=== PATIENT | male | born 1970 | race Caucasian/White ===

== ENCOUNTER 2016-05-28 15:18 | Observation (INO) | payer SELFPAY ==
[2016-05-28] MEDS ORDERED: THIAMINE 200 MG/2 ML IV ONE (15:33)
[2016-05-28] MEDS ORDERED: Sodium Chloride 0.9% 1000 ML 1,000 ML IV STA (15:33)
--- NOTE | 2016-05-28 15:41 | ERPHSYRPT ---
- History of Present Illness Time Seen by Provider: 05/28/16 15:35 Source: patient Exam Limitations: no limitations Patient Subjective Stated Complaint: [facility] DEPARTMENT NICK IN PT WHO BLEW A .399. PT AGGRESSIVE AT TIMES WITH NURSING STAFF. Triage Nursing Assessment: PT AGGRESSIVE AT TIMES WITH THE NURSING STAFF. [facility] DEP. PLACED CUFFS BACK ON PT. SPEECH IS RAMBLED. PT ALERT X 2. SKIN PINK WARM AND DRY. RESPIRATIONS EVEN AND UNLABORED. Physician History: This is a 45-year-old white male with history of seizures, heart problems who states he drinks a pint a day daily for about a year brought by the [facility] for medical clearance Patient was apparently found walking had a breath alcohol of 399. Patient initially somewhat agitated and aggressive with the nurses patient currently is allowing me to complete his examination. Patient states she's been having a cough he's had some chest pain with his cough. No vomiting no diarrhea no abdominal pain. Past medical history includes heart problems, seizures . Timing/Duration: other (patient brought by [facility] today states he drinks daily cough unknown period time associated with pain with coughing) Modifying Factors: Improves With: nothing Associated Symptoms: cough, chest pain (chest pain with cough), No nausea, No vomiting, No abdominal pain, No shortness of breath, No heartburn, No diaphoresis, No fever, No headaches, No loss of appetite, No malaise, No rash, No syncope, No seizure, No weakness Allergies/Adverse Reactions: No Known Drug Allergies Allergy (Verified 01/04/16 17:47) Home Medications: Hydrocodone Bit/Acetaminophen [[place] 7.5-325 Tablet] 1 each PO DAILY 05/28/16 [ History] Hx Tetanus, Diphtheria Vaccination/Date Given: No Hx Influenza Vaccination/Date Given: No Hx Pneumococcal Vaccination/Date Given: No Immunizations Up to Date: No - Review of Systems Constitutional: No Fever, No Chills Eyes: No Symptoms Ears, Nose, & Throat: No Symptoms Respiratory: Cough, No Cyanosis, No Dyspnea, No Dyspnea on Exertion (WHITT), No Stridor, No Wheezing Cardiac: Chest Pain (chest chest pain with cough), No Edema, No Palpitations, No Syncope, No Orthopnea Abdominal/Gastrointestinal: No Abdominal Pain, No Nausea, No Vomiting, No Diarrhea Genitourinary Symptoms: No Dysuria Musculoskeletal: No Back Pain, No Neck Pain Skin: No Rash Neurological: No Dizziness, No Focal Weakness, No Gait Changes, No Headache, No Irritability, No Lethargy, No Paralysis, No Parasthesia, No Seizure, No Sensory Changes, No Speech Changes, No Tics, No Tremors, No Vertigo Psychological: Alcohol Abuse (patient drinks a pint of alcohol daily) Endocrine: No Symptoms All Other Systems: Reviewed and Negative - Past Medical History Pertinent Past Medical History: Yes Neurological History: Seizures ENT History: No Pertinent History Cardiac History: Hypertension, Myocardial Infarction ([place]) Respiratory History: No Pertinent History Endocrine Medical History: No Pertinent History Musculoskeletal History: Arthritis GI Medical History: No Pertinent History History: No Pertinent History Psycho-Social History: No Pertinent History Male Reproductive Disorders: No Pertinent History Other Medical History: 2 LOWER DISCS ARE OUT, - Past Surgical History Past Surgical History: Yes Neuro Surgical History: No Pertinent History Cardiac: Cardiac Catheterization Respiratory: No Pertinent History Gastrointestinal: No Pertinent History Genitourinary: No Pertinent History Musculoskeletal: No Pertinent History Male Surgical History: No Pertinent History - Social History Smoking Status: Current every day smoker How long have you smoked: 20 YRS Exposure to second hand smoke: No Drug Use: none Patient Lives Alone: No - Nursing Vital Signs Nursing Vital Signs: Initial Vital Signs Temperature 97.6 F Temperature Source Axillary Pulse Rate 70 Respiratory Rate 16 Blood Pressure [Left Arm] 194/82 Pain Intensity 0 - Physical Exam General Appearance: other (well-developed well-nourished white male , flushed in appearance, agitated at times) Eye Exam: PERRL/EOMI, eyes nml inspection Ears, Nose, Throat Exam: normal ENT inspection, TMs normal, pharynx normal, moist mucous membranes Neck Exam: normal inspection, non-tender, supple, full range of motion Respiratory Exam: rhonchi (bilateral rhonchi), No diminished breath sounds Cardiovascular Exam: regular rate/rhythm, normal heart sounds, normal peripheral pulses Gastrointestinal/Abdomen Exam: soft, normal bowel sounds, No tenderness, No mass Back Exam: normal inspection, normal range of motion, No CVA tenderness, No vertebral tenderness Extremity Exam: normal inspection, normal range of motion, pelvis stable Neurologic Exam: alert, oriented x 3, normal mood/affect, nml cerebellar function, nml station & gait, sensation nml, other (patient agitated at times swearing at staff), No motor deficits Skin Exam: other (flushed in appearance) SpO2 Interpretation: normal - Course Nursing assessment & vital signs reviewed: Yes EKG Interpreted by Me: RATE (93 bpm), Sinus Rhythm, Other (ekg, sinus [id number] bpm, axis SI/QIII pattern, no acute st ot t wave abnormalities noted) Ordered Tests: Active Orders 24 hr Category Date Time Status Bedrest with BRP/BSC ROUTINE Activity 05/28/16 18:48 Active Admission/Status Order ROUTINE Care 05/28/16 18:48 Active Call Admit Doctor for Orders ON ADMISSION Care 05/28/16 18:48 Active Code Status Order ROUTINE Care 05/28/16 18:48 Active EKG-ER Only STAT Care 05/28/16 15:33 Completed IV Care Q6H Care 05/28/16 18:48 Active IV Insertion STAT Care 05/28/16 15:33 Completed Telemetry ROUTINE Care 05/28/16 18:48 Active Clear Liquid Diet 05/28/16 Breakfast Active ACETAMINOPHEN Stat Lab 05/28/16 15:52 Completed ACETAMINOPHEN Urgent Lab 05/28/16 22:30 Ordered AMYLASE Stat Lab 05/28/16 15:52 Completed CBC W DIFF AM.LAB Lab 05/29/16 04:00 Ordered CBC W DIFF Stat Lab 05/28/16 15:52 Completed CMP AM.LAB Lab 05/29/16 04:00 Ordered CMP Stat Lab 05/28/16 15:52 Completed Ethyl Alcohol,Urine Stat Lab 05/28/16 16:15 Completed Ethyl Alcohol,Urine Urgent Lab 05/29/16 08:00 Ordered LIPASE Stat Lab 05/28/16 15:52 Completed SALICYLATE Stat Lab 05/28/16 15:52 Completed TROPONIN Stat Lab 05/28/16 15:52 Completed Urine Triage Profile Stat Lab 05/28/16 16:15 Completed Transfer Order Routine Transfer 05/28/16 18:19 Completed Medication Summary Generic Name Dose Route Start Last Admin Trade Name Freq PRN Reason Stop Dose Admin Sodium Chloride 1,000 mls @ 100 mls/hr 05/28/16 18:48 05/28/16 19:01 Sodium Chloride 0.9% 1000 Ml IV 06/27/16 18:47 100 mls/hr .Q10H DESHAWN Administration Lorazepam 1 mg 05/28/16 18:48 Ativan 2 Mg/1 Ml Vial IV 06/27/16 18:47 PRN PRN CIWA SCORE Nicotine 21 mg 05/28/16 19:15 Nicoderm Cq 21 Mg TOP 06/27/16 19:14 Q24H DESHAWN Discontinued Medications Generic Name Dose Route Start Last Admin Trade Name Freq PRN Reason Stop Dose Admin Sodium Chloride 1,000 mls @ 999 mls/hr 05/28/16 15:33 05/28/16 15:53 Sodium Chloride 0.9% 1000 Ml IV 05/28/16 16:33 999 mls/hr .Q1H1M STA Administration Sodium Chloride Confirm 05/28/16 15:49 Sodium Chloride 0.9% 1000 Ml Administered 05/28/16 15:50 Dose 1,000 mls @ ud .ROUTE .STK-MED ONE Thiamine HCl 100 mg 05/28/16 15:33 05/28/16 15:53 Thiamine 200 Mg/2 Ml IV 05/28/16 15:34 100 mg STAT ONE Administration Thiamine HCl Confirm 05/28/16 15:49 Thiamine 200 Mg/2 Ml Administered 05/28/16 15:50 Dose 200 mg .ROUTE .STK-MED ONE Lab/Rad Data: Laboratory Result Diagrams 05/28/16 15:52 05/28/16 15:52 Laboratory Results 05/28/16 05/28/16 05/28/16 Range/Units 16:15 16:15 15:52 WBC (4.0-10.5) K/mm3 RBC (4.1-5.6) M/mm3 Hgb (12.5-18.0) gm/dl Hct (42-50) % MCV (78-100) fl MCH (26-32) pg MCHC (32-36) g/dl RDW (11.5-14.0) % Plt Count (150-450) K/mm3 MPV (6-9.5) fl Gran % (36.0-66.0) % Lymphocytes % (24.0-44.0) % Monocytes % (0.0-12.0) % Eosinophils % (0.00-5.0) % Basophils % (0.0-0.4) % Basophils # (0-0.4) Sodium 142 (136-145) mEq/L Potassium 3.9 (3.5-5.1) mEq/L Chloride 103 (98-107) mEq/L Carbon Dioxide 24.9 (21-32) mEq/L Anion Gap 10.9 (5-15) MEQ/L BUN 8 L (9-20) mg/dL Creatinine 0.66 (0.55-1.30) mg/dl Estimated GFR > 60 ML/MIN Glucose 100 (70-110) MG/DL Calcium 9.3 (8.5-10.1) mg/dL Total Bilirubin 0.1 L (0.2-1.0) mg/dL AST 94 H (15-37) U/L ALT 89 H (12-78) U/L Alkaline Phosphatase 158 H (46-116) U/L Troponin I < 0.017 (0.000-0.056) ng/ml Serum Total Protein 8.0 (6.4-8.2) gm/dL Albumin 4.0 (3.4-5.0) g/dL Amylase 55 (25-115) U/L Lipase 145 (73-393) U/L Salicylates 5.3 (2.8-20.0) mg/dl Urine Opiates Level NEG. (NEGATIVE) Ur Methadone NEG. (NEGATIVE) Acetaminophen < 2.0 L (10-30) ug/ml Urine Barbiturates NEG. (NEGATIVE) Ur Phencyclidine (PCP) NEG. (NEGATIVE) Urine Amphetamine NEG. (NEGATIVE) U Benzodiazepine Level NEG. (NEGATIVE) Urine Cocaine NEG. (NEGATIVE) Urine Marijuana (THC) NEG. (NEGATIVE) Urine pH 6.5 (3-8.5) Urine Ethyl Alcohol 518 H (0.00-20) mg/dl 05/28/16 Range/Units 15:52 WBC 7.6 (4.0-10.5) K/mm3 RBC 5.19 (4.1-5.6) M/mm3 Hgb 17.4 (12.5-18.0) gm/dl Hct 50.8 H (42-50) % MCV 97.9 (78-100) fl MCH 33.5 H (26-32) pg MCHC 34.3 (32-36) g/dl RDW 14.7 H (11.5-14.0) % Plt Count 137 L (150-450) K/mm3 MPV 9.3 (6-9.5) fl Gran % 48.9 (36.0-66.0) % Lymphocytes % 40.8 (24.0-44.0) % Monocytes % 8.6 (0.0-12.0) % Eosinophils % 1.2 (0.00-5.0) % Basophils % 0.5 (0.0-0.4) % Basophils # 0.04 (0-0.4) Sodium (136-145) mEq/L Potassium (3.5-5.1) mEq/L Chloride (98-107) mEq/L Carbon Dioxide (21-32) mEq/L Anion Gap (5-15) MEQ/L BUN (9-20) mg/dL Creatinine (0.55-1.30) mg/dl Estimated GFR ML/MIN Glucose (70-110) MG/DL Calcium (8.5-10.1) mg/dL Total Bilirubin (0.2-1.0) mg/dL AST (15-37) U/L ALT (12-78) U/L Alkaline Phosphatase (46-116) U/L Troponin I (0.000-0.056) ng/ml Serum Total Protein (6.4-8.2) gm/dL Albumin (3.4-5.0) g/dL Amylase (25-115) U/L Lipase (73-393) U/L Salicylates (2.8-20.0) mg/dl Urine Opiates Level (NEGATIVE) Ur Methadone (NEGATIVE) Acetaminophen (10-30) ug/ml Urine Barbiturates (NEGATIVE) Ur Phencyclidine (PCP) (NEGATIVE) Urine Amphetamine (NEGATIVE) U Benzodiazepine Level (NEGATIVE) Urine Cocaine (NEGATIVE) Urine Marijuana (THC) (NEGATIVE) Urine pH (3-8.5) Urine Ethyl Alcohol (0.00-20) mg/dl - Progress Progress: improved Progress Note: 05/28/16 18:16 Despite patient being alert and oriented 3 patient has a urine alcohol level of greater than 500 case is discussed with Dr. Sarkar Will plan to place patient on ICU telemetry will provide IV saline thiamine Ativan - Departure Time of Disposition: 18:17 Departure Disposition: Observation Clinical Impression: ALCOHOL TOXICITY Alcohol intoxication Qualifiers: Complication of substance-induced condition: with unspecified complication Qualified Code(s): F10.129 - Alcohol abuse with intoxication, unspecified Condition: Fair Critical Care Time: No
[2016-05-28] MEDS ORDERED: THIAMINE 200 MG/2 ML ONE (15:49)
[2016-05-28] MEDS ORDERED: Sodium Chloride 0.9% 1000 ML 1,000 ML ONE (15:49)
[2016-05-28 15:55] LABS: BASOPHIL % 0.5 % (0.0-0.4); Eosinophil % 1.2 % (0.00-5.0); Granulocytes % 48.9 % (36.0-66.0); Lymphocytes % 40.8 % (24.0-44.0); Mean Cell Volume 97.9 fl (78-100); Mean Corpuscular Hemoglobin 33.5 pg (26-32); Mean Platelet Volume 9.3 fl (6-9.5); Monocytes % 8.6 % (0.0-12.0); Platelet Count 137 K/mm3 (150-450); Red Blood Count 5.19 M/mm3 (4.1-5.6); Red Cell Distribution Width 14.7 % (11.5-14.0); White Blood Count 7.6 K/mm3 (4.0-10.5)
[2016-05-28 17:34] LABS: ALKALINE PHOSPHATASE 158 U/L (46-116); ANION GAP 10.9 MEQ/L (5-15); BILIRUBIN,TOTAL 0.1 mg/dL (0.2-1.0); BLOOD UREA NITROGEN 8 mg/dL (9-20); CHLORIDE 103 mEq/L (98-107); Carbon Dioxide 24.9 mEq/L (21-32); Glucose 100 MG/DL (70-110); LIPASE 145 U/L (73-393); Potassium 3.9 mEq/L (3.5-5.1); SGOT/AST 94 U/L (15-37); SGPT/ALT 89 U/L (12-78); TROPONIN < 0.017 ng/ml (0.000-0.056)
[2016-05-28 17:52] LABS: ACETAMINOPHEN < 2.0 ug/ml (10-30)
[2016-05-28] MEDS ORDERED: Ativan 2 MG/1 ML VIAL IV PRN (18:48)
[2016-05-28] MEDS: Sodium Chloride 0.9% 1000 ML 1,000 ML IV SCH (19:01)
[2016-05-28] MEDS ORDERED: Nicoderm CQ 21 MG TOP SCH (19:15)
[2016-05-28 19:52] LABS: SODIUM 142 mEq/L (136-145)
[2016-05-29] MEDS: Sodium Chloride 0.9% 1000 ML 1,000 ML IV SCH (04:32)
[2016-05-29 05:29] LABS: Mean Cell Volume 97.2 fl (78-100); Mean Corpuscular Hemoglobin 34.2 pg (26-32); Mean Platelet Volume 9.6 fl (6-9.5); Platelet Count 93 K/mm3 (150-450); Red Blood Count 4.33 M/mm3 (4.1-5.6); Red Cell Distribution Width 14.5 % (11.5-14.0); White Blood Count 3.7 K/mm3 (4.0-10.5)
[2016-05-29 06:05] LABS: ALBUMIN 3.2 g/dL (3.4-5.0); ALKALINE PHOSPHATASE 129 U/L (46-116); BILIRUBIN,TOTAL 0.2 mg/dL (0.2-1.0); BLOOD UREA NITROGEN 5 mg/dL (9-20); CHLORIDE 106 mEq/L (98-107); Carbon Dioxide 25.2 mEq/L (21-32); Glucose 92 MG/DL (70-110); Potassium 4.1 mEq/L (3.5-5.1); SGOT/AST 64 U/L (15-37); SGPT/ALT 69 U/L (12-78); SODIUM 142 mEq/L (136-145); Total Protein 6.7 gm/dL (6.4-8.2)
[2016-05-29 06:07] LABS: ATYPICAL LYMPHS 4 %; BAND 1 % (0.0-2.0); Basophil 1 % (0.0-1.0); Eosinophil 3 % (0.00-3.0); Platelet Estimate DECREASED (NORMAL); Total Cells Counted 100
[2016-05-29 06:08] LABS: Toxic Granulation 1+
[2016-05-29 07:55] VITALS: BP 172/109; PULSE 90; O2SAT 99
--- NOTE | 2016-05-29 08:17 | PCM.DCORD ---
- Discharge Discharge Date: 05/29/16 Condition: Fair Prescriptions: Continue Hydrocodone Bit/Acetaminophen [[place] 7.5-325 Tablet] 1 each PO DAILY Follow up with: MAGGY RUSSELL [Primary Care Provider] -
--- NOTE | 2016-05-29 10:39 | SSS ---
DISCHARGE DIAGNOSIS: INTOXICATION. HISTORY OF PRESENT ILLNESS: The patient is a 45 year-old white male patient who apparently is an alcoholic. He apparently drinks a pint of hard liquor every day. He was found by the police out wandering around with garbled speech and he was brought to the emergency room after having a 0.399 on the Breathalyzer test. The patient is felt the need to be admitted to the hospital for observation due to high level of intoxication that the patient has for his safety. He was placed in the ICU for monitoring overnight. MEDICATIONS: Essentially remarkable for only taking Thorp on a basis for chronic pain. The patient is on no other medications. ALLERGIES: NKDA. PHYSICAL EXAMINATION: The patient is of small stature but otherwise well nourished and well developed. VITAL SIGNS: In the emergency room showed temperature 97.6F axillary, pulse 85, respiratory rate 18, blood pressure 139/89. O2 saturation reported as normal. HEENT: Normocephalic, atraumatic. Pupils equal round reactive to light. Extraocular movements intact. Oropharynx is pink and moist. NECK: Supple without lymphadenopathy, thyromegaly or JVD. CHEST: Clear to auscultation with good air movement bilaterally. HEART: Regular rate and rhythm without murmurs, rubs or gallops. ABDOMEN: Soft, nontender, nondistended without hepatosplenomegaly or masses. EXTREMITIES: Without clubbing, cyanosis or edema. NEUROLOGIC: The patient is alert and oriented x3 this morning, cooperative and pleasant. LAB DATA AND TESTS: Laboratory studies from the emergency room urine drug screen was negative. Metabolic panel showed glucose 100, BUN 8, creatinine 0.66. Liver enzymes were elevated at 94 SGOT, 89 SGPT 158 alkaline phosphatase. Amylase and lipase were normal. Troponin was less than 0.017. Acetaminophen and salicylates were negative. He had a white blood cell count 11,100, hemoglobin 14.7, PLT count 194,000. He had urine performed for ETOH level was over 500 but I am unsure how this correlates with blood alcohol level. Apparently our machine will not currently do blood alcohol levels. HOSPITAL COURSE: By the next morning the patient's urine ETOH was 204 and was normal being 0 to 20 but again the patient was awake, alert, and back to his usual state of health. We did have a discussion with him about alcoholism and about elevation in his liver enzymes. We suggested that he have a hepatitis panel drawn to rule out hepatitis C but he declined to have this done and reported he will have his primary care physician, Dr. Jhoan Foy, do this for him as an outpatient. The patient was felt to be ready for discharge home at this time. He reports that he will be calling his mother for a ride home.
== END 2016-05-29 09:15 | disposition home or self-care (01) ==
LOC: ED 15:18 → UNDOADMOB 18:46 → ICU 18:46
PROVIDERS: ADMIT Family Medicine; ATTEND Family Medicine
DX: F10.129 Alcohol abuse with intoxication, unspecified (principal); G89.4 Chronic pain syndrome; F45.42 Pain disorder with related psychological factors; Z79.899 Other long term (current) drug therapy
CPT/HCPCS: 36000; 36415; 80053; 80307; 80320; 82150; 83690; 83986; 84484; 85025; 93005; 96360; 96374; 99285; G0378; G0481

== ENCOUNTER 2016-09-10 14:37 | Emergency (ER) | payer SELFPAY ==
[2016-09-10 14:45] VITALS: BP 167/118; PULSE 103; O2SAT 98
--- NOTE | 2016-09-10 14:58 | ERPHSYRPT ---
- History of Present Illness Time Seen by Provider: 09/10/16 14:50 Source: patient Exam Limitations: clinical condition Patient Subjective Stated Complaint: pt here to see if he is diabetic because hes family is and co right rib pain after a fall a week ago, no other injury Triage Nursing Assessment: pt has no bruising to right rib area, no sob, resp easy, skin w/d Physician History: PATIENT WITH HISTORY OF HYERTENSION, SEIZURE DISORDER, CORONARY ARTERY DISEASE, FELL A WEEK AGO SUSTAINED INJURY TO HIS RIGHT SIDE OF HIS CHEST. HAS PAIN UPON INSPIRATION AND MOTION OF RIGHT ARM. DENIES ASSOCIATED HEAD NECK OR BACK INJURY. Occurred: last week Reason for Fall: lost balance (FELL AGAINST CAR DOOR) Injuries/Pain Location: chest Loss of Consciousness: no loss of consciousness Quality: sharpness Severity of Pain-Max: moderate Severity of Pain-Current: moderate Modifying Factors: Improves With: movement, other (TAKES NORCO DAILY) Associated Symptoms (Fall): chest pain (RIGHT SIDED RIB PAIN) Allergies/Adverse Reactions: No Known Drug Allergies Allergy (Verified 09/10/16 14:47) Home Medications: Hydrocodone Bit/Acetaminophen [[place] 7.5-325 Tablet] 1 each PO DAILY 05/28/16 [ History] Hx Tetanus, Diphtheria Vaccination/Date Given: No Hx Influenza Vaccination/Date Given: No Hx Pneumococcal Vaccination/Date Given: No Immunizations Up to Date: Yes - Review of Systems Constitutional: No Symptoms Cardiac: Chest Pain Neurological: No Symptoms Psychological: No Symptoms - Past Medical History Pertinent Past Medical History: Yes Neurological History: Seizures ENT History: No Pertinent History Cardiac History: Hypertension, Myocardial Infarction ([place]) Respiratory History: No Pertinent History Endocrine Medical History: No Pertinent History Musculoskeletal History: Arthritis GI Medical History: No Pertinent History History: No Pertinent History Psycho-Social History: No Pertinent History Male Reproductive Disorders: No Pertinent History Other Medical History: 2 LOWER DISCS ARE OUT, - Past Surgical History Past Surgical History: Yes Neuro Surgical History: No Pertinent History Cardiac: Cardiac Catheterization Respiratory: No Pertinent History Gastrointestinal: No Pertinent History Genitourinary: No Pertinent History Musculoskeletal: No Pertinent History Male Surgical History: No Pertinent History - Social History Smoking Status: Current every day smoker How long have you smoked: 20 YRS Exposure to second hand smoke: Yes Drug Use: none Patient Lives Alone: No - Nursing Vital Signs Nursing Vital Signs: Initial Vital Signs Temperature 97.4 F Temperature Source Oral Pulse Rate 103 Respiratory Rate 16 Blood Pressure [] 167/118 Pain Intensity 7 - [place] Score Best Eye Response ([place]): (4) open spontaneously Best Verbal Response ([place]): (5) oriented Best Motor Response ([place]): (6) obeys commands Kiran Total: 15 - Physical Exam General Appearance: no apparent distress, alert Head Injury: no evidence of injury Eye Exam: PERRL/EOMI ENT Exam: airway nml Neck Exam: normal inspection, No tenderness Respiratory/Chest Exam: chest tenderness (RIGHT LATERAL CHEST WALL TENDERNESS 5TH TO 7TH RIBS, INFERIOR TO AXILLA, NO CREPITUS OR ECCHYMOSIS), normal breath sounds, No respiratory distress Cardiovascular Exam: normal heart sounds, regular rate/rhythm Gastrointestinal Exam: soft, No tenderness, No distention, No guarding, No ecchymosis Back Exam: normal inspection, No vertebral tenderness Extremity Exam: normal inspection, normal range of motion, pelvis stable, No deformities Peripheral Pulses: carotid (R): 2+, carotid (L): 2+, femoral (R): 2+, femoral (L ): 2+, dorsalis-pedis (R): 2+, dorsalis-pedis (L): 2+ Neurologic Exam: alert, oriented x 3, cooperative, sensation nml, No motor deficits Skin Exam: normal color, warm, dry SpO2 Interpretation: normal SpO2: 98 Oxygen Delivery: Room Air - Radiology Exams Chest X-ray Interpretation: Discussed w/ radiologist, Negative Right Ribs X-ray Interpretation: Discussed w/ radiologist (MILD ACROMIOCLAVICLAR DEGNERATIVE ARTHROPATHRY, NO FRACTURE) Ordered Tests: Active Orders 24 hr Category Date Time Status ACCUCHECK [Accucheck] STAT Care 09/10/16 15:47 Active CHEST 2 VIEWS (PA AND LAT) Stat Exams 09/10/16 15:06 Completed RIBS UNILATERAL Stat Exams 09/10/16 15:06 Completed - Progress Progress Note: 09/10/16 15:50 ACCUCHECK 193 Counseled pt/family regarding: diagnosis, need for follow-up, rad results - Departure Time of Disposition: 15:50 Departure Disposition: Home Clinical Impression: RIGHT CHEST WALL CONTUSION Condition: Stable Critical Care Time: No Referrals: MAGGY RUSSELL [Primary Care Provider] - Additional Instructions: CONTINUE ALL CURRENT MEDICATIONS FOR PAIN. FOLLOWUP WITH YOUR FAMILY PHYSICIAN TOMORROW FOR DIABETIC WORKUP.
--- NOTE | 2016-09-10 15:35 | XRAY ---
Indication: Right-sided pain following fall one week ago. Comparison: January 18, 2012. PA/lateral chest again demonstrates normal heart, lungs, and bony thorax.
--- NOTE | 2016-09-10 15:35 | XRAY ---
Indication: Right-sided pain following fall one week ago. Comparison: None. 2 views of the right ribs demonstrates mild acromioclavicular degenerative arthropathy. No other bony, articular, or soft tissue abnormalities.
== END 2016-09-10 16:00 | disposition home or self-care (01) ==
LOC: ED 14:37
DX: S20.211A Contusion of right front wall of thorax, initial encounter (principal); W01.198A Fall on same level from slipping, tripping and stumbling with subsequent striking against other object, initial encounter; I25.2 Old myocardial infarction; I10 Essential (primary) hypertension
CPT/HCPCS: 71020; 71100; 82962; 99282

== ENCOUNTER 2017-01-19 18:13 | Emergency (ER) | payer OTHER ==
[2017-01-19 18:39] VITALS: BP 146/106; PULSE 112
[2017-01-19] MEDS ORDERED: THIAMINE 200 MG/2 ML IM ONE (18:43)
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
[2017-01-19] MEDS ORDERED: Dextrose 5%-Lr IV Solution 1000 ML 1,000 ML IV SCH (19:00)
[2017-01-19] MEDS ORDERED: THIAMINE 200 MG/2 ML ONE (19:11)
[2017-01-19] MEDS ORDERED: Dextrose 5%-Lr IV Solution 1000 ML 1,000 ML IV ONE (19:11)
[2017-01-19 19:24] LABS: Lactic Acid 3.8 (0.4-2.0)
[2017-01-19 19:26] LABS: VBG BASE EXCESS -3.2 (-2.0-2.0); VBG CARBOXYHEMOGLOBIN 6.1 % T HGB (0.0-6.9); VBG HCO3- 21.3 meq/L (22-28); VBG HEMOGLOBIN 15.7; VBG O2 SATURATION 90.4 (95-100); VBG POTASSIUM 3.3 (3.5-5.1); VBG pH 7.38 (7.32-7.42)
[2017-01-19 19:35] LABS: MAGNESIUM 1.8 mg/dL (1.8-2.4)
[2017-01-19 19:38] LABS: ALBUMIN 3.8 g/dL (3.4-5.0); ALKALINE PHOSPHATASE 198 U/L (46-116); ANION GAP 18.5 MEQ/L (5-15); BLOOD UREA NITROGEN 5 mg/dL (9-20); CHLORIDE 100 mEq/L (98-107); Carbon Dioxide 21.8 mEq/L (21-32); Glucose 109 MG/DL (70-110); Potassium 3.1 mEq/L (3.5-5.1); SGOT/AST 267 U/L (15-37); SGPT/ALT 221 U/L (12-78); SODIUM 137 mEq/L (136-145); Total Protein 7.5 gm/dL (6.4-8.2)
[2017-01-19 19:43] LABS: ETHYL ALCOHOL 0.295 % (0.00-0.01)
[2017-01-19 19:44] LABS: BASOPHIL % 0.1 % (0.0-0.4); Eosinophil % 0.3 % (0.00-5.0); Granulocytes % 75.4 % (36.0-66.0); Lymphocytes % 14.5 % (24.0-44.0); Mean Cell Volume 99.8 fl (78-100); Mean Platelet Volume 12.7 fl (6-9.5); Monocytes % 9.7 % (0.0-12.0); Red Blood Count 4.29 M/mm3 (4.1-5.6); Red Cell Distribution Width 15.2 % (11.5-14.0)
[2017-01-19 19:45] VITALS: O2SAT 97
[2017-01-19] MEDS ORDERED: DILANTIN IV 250 MG/5 ML*** 1,000 MG in Sodium Chloride 0.9% 100 ML IVPB 100 ML IV ONE (19:45)
[2017-01-19] MEDS ORDERED: Sodium Chloride 0.9% 1000 ML 1,000 ML IV STA (19:46)
[2017-01-19 19:52] LABS: Platelet Count 17 K/mm3 (150-450)
[2017-01-19] MEDS ORDERED: Klor Con 10 MEQ PO ONE ×2 (19:55→20:06)
[2017-01-19] MEDS ORDERED: Sodium Chloride 0.9% 1000 ML 1,000 ML ONE (20:01)
[2017-01-19 20:14] LABS: Bilirubin NEGATIVE (NEGATIVE); Blood 250 Ery/ul (0-5); COMPLETE URINE MICROSCOPIC? YES; Collection Type VOID; Glucose NEGATIVE (NEGATIVE); Leukocyte Esterase NEGATIVE (NEGATIVE)
[2017-01-19 20:15] LABS: ADD URINE CULTURE? NO (NO); Bacteria RARE /HPF (NEGATIVE); Epithelial Cells FEW /HPF (FEW); WBC 0-2 /HPF (0-5)
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
--- NOTE | 2017-01-20 10:39 | XRAY ---
Exam: Two-view chest from 01/19/2017. Comparison: Two-view chest from 09/10/2016. Indication: Right lower posterior rib pain/bruising. Findings: Upright PA and lateral chest films are submitted for evaluation. The lateral film is slightly rotated. Also, the patient is rotated slightly to the right on the frontal view. The heart size and contour are normal. The mary and mediastinal structures appear unremarkable. Inflation of the lungs is average. No air space infiltrate, vascular congestion, pneumothorax, or pleural effusion is seen. There is slight prominence at the anterior margin of the right seventh rib which could represent minimal callus from a healed fracture at this site. Correlate clinically. The remaining skeletal findings are remarkable only for minimal lower thoracic anterior spurring. Impression: 1. No acute cardiopulmonary disease is seen. No air space infiltrates or pleural fluid is seen. There is no pneumothorax. 2. Questionable callus at anterior margin of right seventh rib which could be due to an old healed fracture deformity. Correlate clinically.
== END 2017-01-19 21:00 | disposition left against medical advice (07) ==
LOC: ED 18:13
DX: F10.920 Alcohol use, unspecified with intoxication, uncomplicated (principal); D69.6 Thrombocytopenia, unspecified; R56.9 Unspecified convulsions; Z91.14 Patient's other noncompliance with medication regimen
CPT/HCPCS: 36000; 36415; 70450; 71020; 80053; 80185; 80307; 81000; 82805; 83605; 83735; 85025; 93005; 93041; 96360; 96372; 99284; G0481; J1165; A9270-GY

== ENCOUNTER 2017-01-20 13:45 | Observation (INO) | payer OTHER ==
[2017-01-20] MEDS ORDERED: Ativan 2 MG/1 ML VIAL IV ONE ×2 (14:10→17:06)
[2017-01-20] MEDS ORDERED: Sodium Chloride 0.9% 1000 ML 1,000 ML IV STA (14:10)
--- NOTE | 2017-01-20 14:19 | ERPHSYRPT ---
- History of Present Illness Time Seen by Provider: 01/20/17 14:10 Source: patient Exam Limitations: no limitations Patient Subjective Stated Complaint: patient states he is here because police raided his house and he took off to a field and was down on his knees in the field for two hours and because "they wanted me to come to the er". Triage Nursing Assessment: arrives per ambulance. patient states there is nothing wrong with him. stating police were trying to raid his house for drugs. is oriented to name and place. now stating that he thinks his mother and daughter are right outside the room and is demanding they come back here. skin w/d, color normal, resp easy. Physician History: This is a 46-year-old white male with history of seizures, myocardial infarction , arthritis, degenerative disc disease. Patient is brought by the medics. Patient apparently had been seen here yesterday with complaints of a thrombocytopenia, seizure, alcohol intoxication, patient had had an extensive workup he was given IV fluids, Dilantin, potassium, thiamine Patient apparently was at home he states that the police came to his house to check for drugs he states he had to kneel out in the field for several hours Patient arrives somewhat tremulous his blood pressure is elevated He states he has not had any alcohol for 2 days He has no nausea no shortness of breath no chest pain Patient is alert and oriented at this time he is answering questions well he is somewhat tremulous he has no motor deficiencies. Past medical history includes seizures, myocardial infarction, arthritis, degenerative disc disease Past surgical history includes cardiac catheter Social history includes tobacco and alcohol patient denies illicit drug use Timing/Duration: today Severity: moderate Modifying Factors: Improves With: nothing Associated Symptoms: seizure (patient apparently had a seizure yesterday), other (patient is tremulous with elevated blood presure), No nausea, No vomiting , No abdominal pain, No shortness of breath, No heartburn, No diaphoresis, No cough, No chills, No chest pain, No fever, No headaches, No loss of appetite, No malaise, No rash, No syncope, No weakness Allergies/Adverse Reactions: No Known Drug Allergies Allergy (Verified 01/19/17 18:39) Home Medications: Phenytoin Sod Extended 100 mg* [Dilantin 100 MG] 300 mg PO DAILY 01/19/17 [ History] Hx Tetanus, Diphtheria Vaccination/Date Given: Yes (unknown) Hx Influenza Vaccination/Date Given: No Hx Pneumococcal Vaccination/Date Given: No - Review of Systems Constitutional: No Fever, No Chills Eyes: No Symptoms Ears, Nose, & Throat: No Symptoms Respiratory: No Cough, No Dyspnea Cardiac: No Chest Pain, No Edema, No Palpitations, No Syncope, No Orthopnea, No PND Genitourinary Symptoms: No Dysuria Musculoskeletal: No Back Pain, No Neck Pain Skin: No Rash Neurological: Tremors Psychological: No Symptoms Endocrine: No Symptoms All Other Systems: Reviewed and Negative - Past Medical History Pertinent Past Medical History: Yes Neurological History: Seizures ENT History: No Pertinent History Cardiac History: Hypertension, Myocardial Infarction ([place]) Respiratory History: No Pertinent History Endocrine Medical History: No Pertinent History Musculoskeletal History: Arthritis GI Medical History: No Pertinent History History: No Pertinent History Psycho-Social History: No Pertinent History Male Reproductive Disorders: No Pertinent History Other Medical History: 2 LOWER DISCS ARE OUT, - Past Surgical History Past Surgical History: Yes Neuro Surgical History: No Pertinent History Cardiac: Cardiac Catheterization Respiratory: No Pertinent History Gastrointestinal: No Pertinent History Genitourinary: No Pertinent History Musculoskeletal: No Pertinent History Male Surgical History: No Pertinent History - Social History Smoking Status: Current every day smoker How long have you smoked: 11 Exposure to second hand smoke: No Drug Use: none Patient Lives Alone: No - Nursing Vital Signs Nursing Vital Signs: Initial Vital Signs Temperature 99.2 F 01/20/17 13:46 Pulse Rate 124 H 01/20/17 13:46 Respiratory Rate 20 01/20/17 13:46 Blood Pressure 159/111 01/20/17 13:46 O2 Sat by Pulse Oximetry 98 01/20/17 13:46 Pain Scale Pain Intensity 0 - Physical Exam General Appearance: other (well-developed well-nourished white male, tremulous, alert oriented 3) Eye Exam: PERRL/EOMI, eyes nml inspection Ears, Nose, Throat Exam: normal ENT inspection, TMs normal, pharynx normal, moist mucous membranes Neck Exam: normal inspection, non-tender, supple, full range of motion Respiratory Exam: normal breath sounds, lungs clear, No respiratory distress Cardiovascular Exam: tachycardia, No murmur Gastrointestinal/Abdomen Exam: soft, normal bowel sounds, No tenderness, No mass Back Exam: normal inspection, normal range of motion, No CVA tenderness, No vertebral tenderness Extremity Exam: normal inspection, normal range of motion, pelvis stable Neurologic Exam: alert, oriented x 3, cooperative, 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, nml cerebellar function, other (patient tremulous) Skin Exam: normal color, warm, dry, No rash Lymphatic Exam: No adenopathy SpO2 Interpretation: normal (98%) SpO2: 98 Oxygen Delivery: Room Air - Course Nursing assessment & vital signs reviewed: Yes EKG Interpreted by Me: RATE (126 bpm), Sinus Tach, Other (EKG: Sinus tachycardia , 126 BPM, axisSI/QIII pattern, no acute ST or T wavechanges noted, compared to January 19, 2017) Ordered Tests: Active Orders 24 hr Category Date Time Status Accucheck STAT Care 01/20/17 14:10 Active EKG-ER Only STAT Care 01/20/17 14:10 Active IV Insertion STAT Care 01/20/17 14:10 Active Regular Diet Diet 01/20/17 Dinner Active ACETAMINOPHEN Stat Lab 01/20/17 14:25 Completed AMYLASE Stat Lab 01/20/17 14:25 Completed CBC W DIFF Stat Lab 01/20/17 14:25 Completed CMP Stat Lab 01/20/17 14:25 Completed CULTURE,URINE Stat Lab 01/20/17 15:00 Received ETHYL ALCOHOL Stat Lab 01/20/17 14:25 Completed LIPASE Stat Lab 01/20/17 14:25 Completed SALICYLATE Stat Lab 01/20/17 14:25 Completed TROPONIN Q3H Lab 01/20/17 14:30 Completed TROPONIN Q3H Lab 01/20/17 17:30 Ordered TROPONIN Q3H Lab 01/20/17 20:30 Ordered TROPONIN Q3H Lab 01/20/17 23:30 Ordered TROPONIN Q3H Lab 01/21/17 02:30 Ordered UA W/RFX UR CULTURE Stat Lab 01/20/17 15:00 Completed Urine Triage Profile Stat Lab 01/20/17 15:00 Completed Transfer Order Routine Transfer 01/20/17 Ordered Medication Summary Discontinued Medications Generic Name Dose Route Start Last Admin Trade Name Freq PRN Reason Stop Dose Admin Sodium Chloride 1,000 mls @ 999 mls/hr 01/20/17 14:10 01/20/17 14:37 Sodium Chloride 0.9% 1000 Ml IV 01/20/17 15:10 999 mls/hr .Q1H1M STA Administration Sodium Chloride Confirm 10/25/17 14:33 Sodium Chloride 0.9% 1000 Ml Administered 01/20/17 14:34 Dose 1,000 mls @ ud .ROUTE .STK-MED ONE Lorazepam 1 mg 01/20/17 14:10 01/20/17 14:38 Ativan 2 Mg/1 Ml Vial IV 01/20/17 14:11 1 mg STAT ONE Administration Lorazepam Confirm 01/20/17 14:33 Ativan 2 Mg/1 Ml Vial Administered 01/20/17 14:34 Dose 2 mg .ROUTE .STK-MED ONE Lab/Rad Data: Laboratory Result Diagrams 01/20/17 14:25 01/20/17 14:25 Laboratory Results 01/20/17 01/20/17 01/20/17 Range/Units 15:00 15:00 14:30 WBC (4.0-10.5) K/mm3 RBC (4.1-5.6) M/mm3 Hgb (12.5-18.0) gm/dl Hct (42-50) % MCV (78-100) fl MCH (26-32) pg MCHC (32-36) g/dl RDW (11.5-14.0) % Plt Count (150-450) K/mm3 MPV (6-9.5) fl Gran % (36.0-66.0) % Lymphocytes % (24.0-44.0) % Monocytes % (0.0-12.0) % Eosinophils % (0.00-5.0) % Basophils % (0.0-0.4) % Basophils # (0-0.4) Sodium (136-145) mEq/L Potassium (3.5-5.1) mEq/L Chloride (98-107) mEq/L Carbon Dioxide (21-32) mEq/L Anion Gap (5-15) MEQ/L BUN (9-20) mg/dL Creatinine (0.55-1.30) mg/dl Estimated GFR ML/MIN Glucose (70-110) MG/DL Calcium (8.5-10.1) mg/dL Total Bilirubin (0.2-1.0) mg/dL AST (15-37) U/L ALT (12-78) U/L Alkaline Phosphatase (46-116) U/L Troponin I < 0.017 (0.000-0.056) ng/ml Serum Total Protein (6.4-8.2) gm/dL Albumin (3.4-5.0) g/dL Amylase (25-115) U/L Lipase (73-393) U/L Ur Collection Type VOID Urine Color YELLOW (YELLOW) Urine Appearance CLEAR (CLEAR) Urine pH 7.0 (5-6) Ur Specific [place] 1.005 (1.005-1.025) Urine Protein TRACE (Negative) Urine Ketones TRACE (NEGATIVE) Urine Blood 5-10 (0-5) Chris/ul Urine Nitrite NEGATIVE (NEGATIVE) Urine Bilirubin NEGATIVE (NEGATIVE) Urine Urobilinogen NORMAL (0-1) mg/dL Ur Leukocyte Esterase TRACE (NEGATIVE) Urine Culture Reflexed YES (NO) Urine Glucose NEGATIVE (NEGATIVE) mg/dL Salicylates (2.8-20.0) mg/dl Urine Opiates Level NEG. (NEGATIVE) Ur Methadone NEG. (NEGATIVE) Acetaminophen (10-30) ug/ml Urine Barbiturates NEG. (NEGATIVE) Ur Phencyclidine (PCP) NEG. (NEGATIVE) Urine Amphetamine NEG. (NEGATIVE) U Benzodiazepine Level NEG. (NEGATIVE) Urine Cocaine NEG. (NEGATIVE) Urine Marijuana (THC) NEG. (NEGATIVE) Ethyl Alcohol (0.00-0.01) % Slides for Path Review Specimen Received 01/20/17 1500 01/20/17 01/20/17 Range/Units 14:25 14:25 WBC 5.9 (4.0-10.5) K/mm3 RBC 3.93 L (4.1-5.6) M/mm3 Hgb 13.6 (12.5-18.0) gm/dl Hct 39.7 L (42-50) % MCV 101.0 H (78-100) fl MCH 34.6 H (26-32) pg MCHC 34.3 (32-36) g/dl RDW 15.1 H (11.5-14.0) % Plt Count 22 L* (150-450) K/mm3 MPV 11.9 H (6-9.5) fl Gran % 73.5 H (36.0-66.0) % Lymphocytes % 13.9 L (24.0-44.0) % Monocytes % 11.9 (0.0-12.0) % Eosinophils % 0.5 (0.00-5.0) % Basophils % 0.2 (0.0-0.4) % Basophils # 0.01 (0-0.4) Sodium 132 L (136-145) mEq/L Potassium 4.0 (3.5-5.1) mEq/L Chloride 96 L (98-107) mEq/L Carbon Dioxide 24.6 (21-32) mEq/L Anion Gap 15.7 H (5-15) MEQ/L BUN 6 L (9-20) mg/dL Creatinine 0.50 L (0.55-1.30) mg/dl Estimated GFR > 60 ML/MIN Glucose 87 (70-110) MG/DL Calcium 9.7 (8.5-10.1) mg/dL Total Bilirubin 1.60 H (0.2-1.0) mg/dL AST 176 H (15-37) U/L ALT 179 H (12-78) U/L Alkaline Phosphatase 172 H (46-116) U/L Troponin I (0.000-0.056) ng/ml Serum Total Protein 7.2 (6.4-8.2) gm/dL Albumin 3.6 (3.4-5.0) g/dL Amylase 51 (25-115) U/L Lipase 91 (73-393) U/L Ur Collection Type Urine Color (YELLOW) Urine Appearance (CLEAR) Urine pH (5-6) Ur Specific [place] (1.005-1.025) Urine Protein (Negative) Urine Ketones (NEGATIVE) Urine Blood (0-5) Chris/ul Urine Nitrite (NEGATIVE) Urine Bilirubin (NEGATIVE) Urine Urobilinogen (0-1) mg/dL Ur Leukocyte Esterase (NEGATIVE) Urine Culture Reflexed (NO) Urine Glucose (NEGATIVE) mg/dL Salicylates < 2.8 L (2.8-20.0) mg/dl Urine Opiates Level (NEGATIVE) Ur Methadone (NEGATIVE) Acetaminophen < 2.0 L (10-30) ug/ml Urine Barbiturates (NEGATIVE) Ur Phencyclidine (PCP) (NEGATIVE) Urine Amphetamine (NEGATIVE) U Benzodiazepine Level (NEGATIVE) Urine Cocaine (NEGATIVE) Urine Marijuana (THC) (NEGATIVE) Ethyl Alcohol < 0.010 (0.00-0.01) % Slides for Path Review YES Specimen Received - Progress Progress: improved Progress Note: 01/20/17 14:17 46-year-old white male seen here yesterday secondary to seizures patient states that he has not drank for 2 days he was a given Dilantin yesterday IV fluids thiamine patient was given a diagnosis of thrombocytopenia noncompliance with medication, seizures. Patient apparently had please come out to his house today who were checking for drugs she was noted to be tremulous and not acting right he was sent into the emergency room for evaluation. On arrival patient is tremulous he is alert oriented 3 he is cooperative at this time. He states he has not had an alcoholic beverage for 2 days. He is tachycardic. Patient did receive thiamine last night. Will give patient IV normal saline, Ativan,. Repeat the CBC CMP EKG blood alcohol level. 01/20/17 15:40 Patient with elevated liver enzymes on chemistry patient EKG sinus tachycardia 1 26 bpm no acute changes are noted troponin within normal limits urine drug screen is negative blood alcohol of less than 0.010 patient's blood alcohol yesterday was 0.270 patient with thrombocytopenia of 22 which is improved from 17 yesterday Patient has received normal saline in the emergency room he received thiamine IV last night. I have given the patient Ativan 1 mg IV. I've discussed the case with Dr. Da Silva who is librarian special collections for medical backup. Will go ahead and place patient on observation diagnosis alcohol withdrawal. Will continue to provide IV fluids, thiamine, Ativan. - Departure Time of Disposition: 16:10 Departure Disposition: Observation Clinical Impression: Thrombocytopenia Alcohol withdrawal Qualifiers: Complication of substance-induced condition: with unspecified complication Qualified Code(s): F10.239 - Alcohol dependence with withdrawal, unspecified Condition: Good Critical Care Time: No Referrals: MAGGY RUSSELL [Primary Care Provider] -
[2017-01-20 14:30] LABS: BASOPHIL % 0.2 % (0.0-0.4); Eosinophil % 0.5 % (0.00-5.0); Granulocytes % 73.5 % (36.0-66.0); Lymphocytes % 13.9 % (24.0-44.0); Mean Corpuscular Hemoglobin 34.6 pg (26-32); Mean Platelet Volume 11.9 fl (6-9.5); Monocytes % 11.9 % (0.0-12.0); Red Blood Count 3.93 M/mm3 (4.1-5.6); Red Cell Distribution Width 15.1 % (11.5-14.0); White Blood Count 5.9 K/mm3 (4.0-10.5)
[2017-01-20] MEDS ORDERED: Sodium Chloride 0.9% 1000 ML 1,000 ML ONE (14:33)
[2017-01-20] MEDS ORDERED: Ativan 2 MG/1 ML VIAL ONE ×2 (14:33→17:07)
[2017-01-20 14:43] LABS: Platelet Count 22 K/mm3 (150-450)
[2017-01-20 14:49] LABS: ALBUMIN 3.6 g/dL (3.4-5.0); ALKALINE PHOSPHATASE 172 U/L (46-116); ANION GAP 15.7 MEQ/L (5-15); BLOOD UREA NITROGEN 6 mg/dL (9-20); CHLORIDE 96 mEq/L (98-107); Carbon Dioxide 24.6 mEq/L (21-32); ETHYL ALCOHOL < 0.010 % (0.00-0.01); Glucose 87 MG/DL (70-110); LIPASE 91 U/L (73-393); SGOT/AST 176 U/L (15-37); SGPT/ALT 179 U/L (12-78); SODIUM 132 mEq/L (136-145); Total Protein 7.2 gm/dL (6.4-8.2)
[2017-01-20 14:51] LABS: ACETAMINOPHEN < 2.0 ug/ml (10-30)
[2017-01-20 15:14] LABS: Bilirubin NEGATIVE (NEGATIVE); Collection Type VOID; Glucose NEGATIVE (NEGATIVE); Leukocyte Esterase TRACE (NEGATIVE)
[2017-01-20 15:15] LABS: ADD URINE CULTURE? YES (NO)
[2017-01-20 15:23] LABS: COMPLETE URINE MICROSCOPIC? YES
[2017-01-20] MEDS ORDERED: Sodium Chloride 0.9% 1000 ML 1,000 ML IV SCH (18:34)
[2017-01-20] MEDS: Ativan 2 MG/1 ML VIAL IV PRN ×2 (19:17→21:50)
[2017-01-20] MEDS ORDERED: Nicoderm CQ 21 MG TOP SCH (22:00)
[2017-01-20] MEDS ORDERED: Haldol 5 MG IM ONE (23:04)
[2017-01-21 03:32] LABS: BASOPHIL % 0.3 % (0.0-0.4); Eosinophil % 1.5 % (0.00-5.0); Granulocytes % 50.5 % (36.0-66.0); Lymphocytes % 31.8 % (24.0-44.0); Mean Cell Volume 101.4 fl (78-100); Mean Platelet Volume 11.6 fl (6-9.5); Monocytes % 15.9 % (0.0-12.0); Red Blood Count 3.57 M/mm3 (4.1-5.6); Red Cell Distribution Width 15.1 % (11.5-14.0); White Blood Count 3.9 K/mm3 (4.0-10.5)
[2017-01-21 03:48] LABS: Mean Corpuscular Hemoglobin 34.1 pg (26-32)
[2017-01-21 03:49] LABS: Platelet Count 22 K/mm3 (150-450)
[2017-01-21 04:14] LABS: ALBUMIN 3.1 g/dL (3.4-5.0); ALKALINE PHOSPHATASE 158 U/L (46-116); ANION GAP 13.3 MEQ/L (5-15); BLOOD UREA NITROGEN 5 mg/dL (9-20); CHLORIDE 100 mEq/L (98-107); Carbon Dioxide 25.6 mEq/L (21-32); Glucose 96 MG/DL (70-110); Potassium 3.6 mEq/L (3.5-5.1); SGOT/AST 128 U/L (15-37); SGPT/ALT 135 U/L (12-78); SODIUM 135 mEq/L (136-145); Total Protein 5.8 gm/dL (6.4-8.2)
[2017-01-21 05:32] VITALS: BP 117/67; PULSE 89; O2SAT 96
--- NOTE | 2017-01-21 08:24 | PCM.SSS ---
History of Present Illness - Chief Complaint Chief Complaint: etoh withdrawl thombocytopenia History of Present Illness: is a 46 year old male with no local physician, he normally sees Dr Foy. He has a history of seizures, was in the ER for a seizure. He was acutely intoxicated 2 days ago, returned yesterday and alcohol level was 0 and he exhibited signs and symptoms of withdrawal. - Review of Systems Constitutional: No Fever, No Chills Respiratory: No Cough, No Short Of Breath Cardiac: No Chest Pain, No Edema, No Syncope Skin: No Rash Neurological: Seizure All Other Systems: Reviewed and Negative Medications & Allergies Home Medications: Home Medication List Phenytoin Sod Extended 100 mg* [Dilantin 100 MG] 300 mg PO DAILY 01/19/17 [ History Confirmed 01/20/17] Allergies/Adverse Reactions: Allergies Allergy/AdvReac Type Severity Reaction Status Date / Time No Known Drug Allergies Allergy Verified 01/19/17 18:39 - Past Medical History Past Medical History: Yes Neurological History: Seizures ENT History: No Pertinent History Cardiac History: Hypertension, Myocardial Infarction ([place]) Respiratory History: No Pertinent History Endocrine Medical History: No Pertinent History Musculoskelatal History: Arthritis GI Medical History: No Pertinent History History: No Pertinent History Pyscho-Social History: No Pertinent History Male Reproductive Disorders: No Pertinent History Comment: 2 LOWER DISCS ARE OUT, - Past Surgical History Past Surgical History: Yes Neuro Surgical History: No Pertinent History Cardiac History: Cardiac Catheterization Respiratory Surgery: No Pertinent History GI Surgical History: No Pertinent History Genitourinary Surgical Hx: No Pertinent History Musculskeletal Surgical Hx: No Pertinent History Male Surgical History: No Pertinent History - Social History Smoking Status: Heavy tobacco smoker How long have you smoked: 10years Exposure to second hand smoke: No Alcohol: Daily Drug Use: none - Physical Exam Vital Signs: Vital Signs - 24 hr Temp Pulse Resp BP Pulse Ox 01/21/17 04:00 89 16 117/67 96 01/21/17 00:00 97.9 F 102 H 20 156/91 97 01/20/17 20:14 98.6 F 111 H 19 136/90 95 01/20/17 20:00 102 H 25 H 01/20/17 18:32 99.2 F 120 H 16 143/116 01/20/17 17:03 120 H 16 143/116 01/20/17 16:12 98 01/20/17 15:40 116 H 16 132/79 01/20/17 14:50 117 H 24 133/88 98 01/20/17 14:36 112 H 20 150/75 98 01/20/17 13:46 99.2 F 124 H 20 159/111 98 General Appearance: no apparent distress, alert Neurologic Exam: alert, oriented x 3, cooperative, normal mood/affect, nml cerebellar function, nml station & gait, sensation nml, No motor deficits Eye Exam: PERRL/EOMI, eyes nml inspection Respiratory Exam: normal breath sounds, lungs clear, No respiratory distress Cardiovascular Exam: regular rate/rhythm, normal heart sounds, normal peripheral pulses Gastrointestinal/Abdomen Exam: soft, normal bowel sounds, No tenderness, No mass Extremity Exam: normal inspection, normal range of motion, pelvis stable Results - Labs Lab/Micro Results: Lab Results-Last 24 Hours 01/20/17 01/21/17 01/21/17 Range/Units 20:45 03:22 03:22 WBC 3.9 L (4.0-10.5) K/mm3 RBC 3.57 L (4.1-5.6) M/mm3 Hgb 12.2 L (12.5-18.0) gm/dl Hct 36.2 L (42-50) % MCV 101.4 H (78-100) fl MCH 34.1 H (26-32) pg MCHC 33.7 (32-36) g/dl RDW 15.1 H (11.5-14.0) % Plt Count 22 L* (150-450) K/mm3 MPV 11.6 H (6-9.5) fl Gran % 50.5 (36.0-66.0) % Lymphocytes % 31.8 (24.0-44.0) % Monocytes % 15.9 H (0.0-12.0) % Eosinophils % 1.5 (0.00-5.0) % Basophils % 0.3 (0.0-0.4) % Basophils # 0.01 (0-0.4) Sodium (136-145) mEq/L Potassium (3.5-5.1) mEq/L Chloride (98-107) mEq/L Carbon Dioxide (21-32) mEq/L Anion Gap (5-15) MEQ/L BUN (9-20) mg/dL Creatinine (0.55-1.30) mg/dl Estimated GFR ML/MIN Glucose (70-110) MG/DL Calcium (8.5-10.1) mg/dL Total Bilirubin (0.2-1.0) mg/dL AST (15-37) U/L ALT (12-78) U/L Alkaline Phosphatase (46-116) U/L Troponin I < 0.017 < 0.017 (0.000-0.056) ng/ml Serum Total Protein (6.4-8.2) gm/dL Albumin (3.4-5.0) g/dL 01/21/17 Range/Units 03:22 WBC (4.0-10.5) K/mm3 RBC (4.1-5.6) M/mm3 Hgb (12.5-18.0) gm/dl Hct (42-50) % MCV (78-100) fl MCH (26-32) pg MCHC (32-36) g/dl RDW (11.5-14.0) % Plt Count (150-450) K/mm3 MPV (6-9.5) fl Gran % (36.0-66.0) % Lymphocytes % (24.0-44.0) % Monocytes % (0.0-12.0) % Eosinophils % (0.00-5.0) % Basophils % (0.0-0.4) % Basophils # (0-0.4) Sodium 135 L (136-145) mEq/L Potassium 3.6 (3.5-5.1) mEq/L Chloride 100 (98-107) mEq/L Carbon Dioxide 25.6 (21-32) mEq/L Anion Gap 13.3 (5-15) MEQ/L BUN 5 L (9-20) mg/dL Creatinine 0.52 L (0.55-1.30) mg/dl Estimated GFR > 60 ML/MIN Glucose 96 (70-110) MG/DL Calcium 9.1 (8.5-10.1) mg/dL Total Bilirubin 1.20 H (0.2-1.0) mg/dL AST 128 H (15-37) U/L ALT 135 H (12-78) U/L Alkaline Phosphatase 158 H (46-116) U/L Troponin I (0.000-0.056) ng/ml Serum Total Protein 5.8 L (6.4-8.2) gm/dL Albumin 3.1 L (3.4-5.0) g/dL - Other Procedures and Tests Respiratory Therapy 01/20/17 20:00 Smoking Cessation Education ONCE Assessment/Plan (1) Alcohol withdrawal Current Visit: Yes Status: Acute Qualifiers: Complication of substance-induced condition: with unspecified complication Qualified Code(s): F10.239 - Alcohol dependence with withdrawal, unspecified Assessment & Plan: discussed help with alcohol detox and offered services, patient is not interested. insists he must go home today. he is alert, oriented and understands risks of withdrawal. I expect he will return home and start drinking again. Code(s): F10.239 - ALCOHOL DEPENDENCE WITH WITHDRAWAL, UNSPECIFIED (2) Thrombocytopenia Current Visit: Yes Status: Acute (3) Alcoholic hepatitis Current Visit: No Status: Acute Qualifiers: Ascites presence: without ascites Qualified Code(s): K70.10 - Alcoholic hepatitis without ascites Code(s): K70.10 - ALCOHOLIC HEPATITIS WITHOUT ASCITES (4) Seizure Current Visit: No Status: Acute Assessment & Plan: continue dilantin, discussed adding keppra but patient has no insurance and states he can't afford any other medication. states he will f/u with Dr Foy and again insists he has to go home today. Hospital Summary - Vitals & Intake/Output Vital Signs: Vital Signs Temperature 97.9 F 01/21/17 00:00 Pulse Rate 89 01/21/17 04:00 Respiratory Rate 16 01/21/17 04:00 Blood Pressure 117/67 01/21/17 04:00 O2 Sat by Pulse Oximetry 96 01/21/17 04:00 Intake & Output: Intake & Output 01/18/17 01/19/17 01/20/17 01/21/17 11:59 11:59 11:59 11:59 Intake Total 1080 Output Total 550 Balance 530 Weight 75.523 kg - Lab Result Diagrams: 01/21/17 03:22 01/21/17 03:22 Lab Results-Last 24 Hrs: Lab Results-Last 24 Hours 01/20/17 01/21/17 01/21/17 Range/Units 20:45 03:22 03:22 WBC 3.9 L (4.0-10.5) K/mm3 RBC 3.57 L (4.1-5.6) M/mm3 Hgb 12.2 L (12.5-18.0) gm/dl Hct 36.2 L (42-50) % MCV 101.4 H (78-100) fl MCH 34.1 H (26-32) pg MCHC 33.7 (32-36) g/dl RDW 15.1 H (11.5-14.0) % Plt Count 22 L* (150-450) K/mm3 MPV 11.6 H (6-9.5) fl Gran % 50.5 (36.0-66.0) % Lymphocytes % 31.8 (24.0-44.0) % Monocytes % 15.9 H (0.0-12.0) % Eosinophils % 1.5 (0.00-5.0) % Basophils % 0.3 (0.0-0.4) % Basophils # 0.01 (0-0.4) Sodium (136-145) mEq/L Potassium (3.5-5.1) mEq/L Chloride (98-107) mEq/L Carbon Dioxide (21-32) mEq/L Anion Gap (5-15) MEQ/L BUN (9-20) mg/dL Creatinine (0.55-1.30) mg/dl Estimated GFR ML/MIN Glucose (70-110) MG/DL Calcium (8.5-10.1) mg/dL Total Bilirubin (0.2-1.0) mg/dL AST (15-37) U/L ALT (12-78) U/L Alkaline Phosphatase (46-116) U/L Troponin I < 0.017 < 0.017 (0.000-0.056) ng/ml Serum Total Protein (6.4-8.2) gm/dL Albumin (3.4-5.0) g/dL 01/21/17 Range/Units 03:22 WBC (4.0-10.5) K/mm3 RBC (4.1-5.6) M/mm3 Hgb (12.5-18.0) gm/dl Hct (42-50) % MCV (78-100) fl MCH (26-32) pg MCHC (32-36) g/dl RDW (11.5-14.0) % Plt Count (150-450) K/mm3 MPV (6-9.5) fl Gran % (36.0-66.0) % Lymphocytes % (24.0-44.0) % Monocytes % (0.0-12.0) % Eosinophils % (0.00-5.0) % Basophils % (0.0-0.4) % Basophils # (0-0.4) Sodium 135 L (136-145) mEq/L Potassium 3.6 (3.5-5.1) mEq/L Chloride 100 (98-107) mEq/L Carbon Dioxide 25.6 (21-32) mEq/L Anion Gap 13.3 (5-15) MEQ/L BUN 5 L (9-20) mg/dL Creatinine 0.52 L (0.55-1.30) mg/dl Estimated GFR > 60 ML/MIN Glucose 96 (70-110) MG/DL Calcium 9.1 (8.5-10.1) mg/dL Total Bilirubin 1.20 H (0.2-1.0) mg/dL AST 128 H (15-37) U/L ALT 135 H (12-78) U/L Alkaline Phosphatase 158 H (46-116) U/L Troponin I (0.000-0.056) ng/ml Serum Total Protein 5.8 L (6.4-8.2) gm/dL Albumin 3.1 L (3.4-5.0) g/dL - Procedures and Test Procedures and Tests throughout Hospitalization: Therapy Orders & Screens 01/20/17 20:00 Smoking Cessation Education ONCE Comment: Diagnosis: etoh withdrawl thombocytopenia Smoking Status: Heavy tobacco smoker How long have you smoked: 10years Have you smoked in the past 12 months: Yes Approximately how many cigarettes per day: pack Do you dip or chew tobacco: No - Discharge Disposition: Home, Self-Care Condition: Stable Prescriptions: Continue Phenytoin Sod Extended 100 mg* [Dilantin 100 MG] 300 mg PO DAILY Follow up with: MAGGY FOY [Primary Care Provider] -
[2017-01-21] MEDS ORDERED: VITAMIN B-1 100 MG PO SCH (10:00)
[2017-01-21] MEDS ORDERED: Dilantin 100 MG PO SCH (10:00)
== END 2017-01-21 10:10 | disposition home or self-care (01) ==
LOC: ED 13:45 → MED SURG 18:25
PROVIDERS: ADMIT Family Medicine; ATTEND Family Medicine
DX: F10.239 Alcohol dependence with withdrawal, unspecified (principal); D69.6 Thrombocytopenia, unspecified; K70.10 Alcoholic hepatitis without ascites; G40.909 Epilepsy, unspecified, not intractable, without status epilepticus; M19.90 Unspecified osteoarthritis, unspecified site; I25.2 Old myocardial infarction; I10 Essential (primary) hypertension
CPT/HCPCS: 36415; 80053; 80307; 81002; 82150; 82962; 83690; 84484; 85025; 87086; 93005; 93041; 96360; 96374; 96376; 99285; G0378; G0481; J1630; J2060; A9270-GY

== ENCOUNTER 2017-06-13 18:12 | Emergency (ER) | payer BC, OTHER ==
[2017-06-13] MEDS ORDERED: THIAMINE 200 MG/2 ML IM ONE (18:32)
[2017-06-13] MEDS ORDERED: Sodium Chloride 0.9% 1000 ML 1,000 ML IV STA (18:40)
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
[2017-06-13] MEDS ORDERED: Dextrose 5%-Lr IV Solution 1000 ML 1,000 ML IV SCH (19:00)
[2017-06-13] MEDS ORDERED: Ativan 1 MG PO ONE (19:19)
[2017-06-13 19:26] VITALS: BP 158/101; PULSE 101; O2SAT 97
[2017-06-13 20:16] LABS: BASOPHIL % 0.3 % (0.0-0.4); Basophil (Absolute #) 0.02 (0-0.4); Eosinophil % 1.4 % (0.00-5.0); Granulocyte Absolute (ANC) 4.02 (1.4-6.9); Granulocytes % 57.3 % (36.0-66.0); Hemoglobin 15.2 gm/dl (12.5-18.0); Lymphocyte (Absolute #) 2.31 (1.0-4.6); Mean Cell Volume 95.7 fl (78-100); Mean Corpuscular Hgb Concent. 34.5 g/dl (32-36); Mean Platelet Volume 9.7 fl (6-9.5); Monocyte (Absolute #) 0.56 (0.0-1.3); Platelet Count 78 K/mm3 (150-450); Red Cell Distribution Width 14.7 % (11.5-14.0)
[2017-06-13 20:33] LABS: INR 1.02 (0.8-3.0)
[2017-06-13 20:44] LABS: ALBUMIN 4.6 g/dL (3.5-5.0); ALKALINE PHOSPHATASE 119 U/L (38-126); ANION GAP 20.6 MEQ/L (5-15); BLOOD UREA NITROGEN 10 mg/dL (9-20); CHLORIDE 105 mmol/L (98-107); Calcium 9.8 mg/dL (8.4-10.2); Carbon Dioxide 26 mmol/L (22-30); Creatinine 1 0.52 mg/dL (0.66-1.25); Glucose 106 mg/dL (74-106); Potassium 4.1 mmol/L (3.5-5.1); SGOT/AST 59 U/L (17-59); SGPT/ALT 33 U/L (0-50); SODIUM 147 mmol/L (137-145); Total Protein 7.9 g/dL (6.3-8.2)
[2017-06-13 20:53] LABS: Amphetamine,Urine NEGATIVE (NEGATIVE); Barbiturate,Urine NEGATIVE (NEGATIVE); Benzodiazepine,Urine NEGATIVE (NEGATIVE); Cocaine,Urine NEGATIVE (NEGATIVE); Methadone,Urine NEGATIVE (NEGATIVE); Opiate,Urine NEGATIVE (NEGATIVE); PCP,Urine NEGATIVE (NEGATIVE); THC,Urine NEGATIVE (NEGATIVE)
[2017-06-13 21:00] LABS: ETHYL ALCOHOL 477 mg/dL (0-9)
[2017-06-13 23:32] LABS: Appearance CLEAR (CLEAR); Bilirubin NEGATIVE (NEGATIVE); Blood NEGATIVE Ery/ul (0-5); Glucose NEGATIVE (NEGATIVE); Ketones NEGATIVE (NEGATIVE); Leukocyte Esterase NEGATIVE (NEGATIVE); Nitrite NEGATIVE (NEGATIVE); Protein,Urine Dip NEGATIVE (Negative); Specific Gravity 1.005 (1.005-1.025); Urobilinogen NORMAL mg/dL (0-1)
[2017-06-14 02:07] LABS: Slide Review 1 YES
--- NOTE | 2017-06-14 09:05 | XRAY ---
Indication: Left-sided injury following fall. Multiple contiguous axial images obtained through the facial bones. Sagittal and coronal reformatted images obtained. Comparison: July 18, 2014. Images through the mandible slightly degraded by motion artifact and beam artifact from dental amalgams. Minimal left supraorbital soft tissue swelling. No acute fracture, suspicious bony lesions, or radiopaque foreign body. Orbits including roof, ann, and floors intact. Paranasal sinuses are clear. Mild nasal septal deviation to the right. Remaining visualized noncontrasted soft tissues unremarkable. CT cervical spine and head reported separately. Impression: Motion and beam artifact. Left superolateral soft tissue swelling. Negative acute fracture. Comment: Preliminary interpretation was made by [facility]. No discrepancy. CT DI 59.47
--- NOTE | 2017-06-14 09:09 | XRAY ---
Indication: Left-sided injury following fall. Multiple contiguous axial images obtained through the cervical spine. Sagittal and coronal reformatted images obtained. Comparison: July 18, 2014. Patient is mildly rotated and side bent to the right. Several images slightly degraded by motion artifact. No acute fracture, suspicious bony lesions, or spinal canal stenosis. Minimal multilevel bilateral degenerative facet arthropathy. Sagittal and coronal reformatted images demonstrates vertebral body heights and disc spaces maintained. No acute compression fracture, subluxation, or jumped facet. Normal-appearing craniocervical junction. Visualized noncontrasted soft tissues including lung apices unremarkable. CT head and facial bones reported separately. Impression: Motion artifact. Minimal multilevel degenerative facet arthropathy. Negative for acute fracture/subluxation. Comment: Preliminary interpretation was made by [facility]. No discrepancy. CT DI 103.80
== END 2017-06-13 21:00 | disposition left against medical advice (07) ==
LOC: ED 18:12
DX: S09.90XA Unspecified injury of head, initial encounter (principal); R68.84 Jaw pain; M54.2 Cervicalgia; R51 Headache
CPT/HCPCS: 36415; 70450; 70486; 72125; 80053; 80307; 81002; 83735; 85025; 85610; 93041; 99282; 99284; G0480

== ENCOUNTER 2018-04-06 09:30 | Emergency (ER) | payer BC ==
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
[2018-04-06] MEDS ORDERED: Sodium Chloride 0.9% 1000 ML 1,000 ML IV STA ×2 (10:15→11:38)
[2018-04-06] MEDS ORDERED: Sodium Chloride 0.9% 1000 ML 1,000 ML ONE ×2 (10:32→11:40)
[2018-04-06 10:38] LABS: BASOPHIL % 0.1 % (0.0-0.4); Basophil (Absolute #) 0.01 (0-0.4); Eosinophil (Absolute #) 0 (0-0.5); Granulocytes % 86.5 % (36.0-66.0); Hematocrit 35.4 % (42-50); Hemoglobin 12.7 gm/dl (12.5-18.0); Lymphocyte (Absolute #) 0.73 (1.0-4.6); Lymphocytes % 6.7 % (24.0-44.0); Mean Cell Volume 101.4 fl (78-100); Mean Corpuscular Hgb Concent. 35.9 g/dl (32-36); Mean Platelet Volume 11.2 fl (6-9.5); Monocyte (Absolute #) 0.73 (0.0-1.3); Monocytes % 6.7 % (0.0-12.0); Platelet Count 47 K/mm3 (150-450); Red Blood Count 3.49 M/mm3 (4.1-5.6); Red Cell Distribution Width 14.9 % (11.5-14.0); White Blood Count 10.9 K/mm3 (4.0-10.5)
[2018-04-06 10:39] LABS: Mean Corpuscular Hemoglobin 36.3 pg (26-32)
[2018-04-06 10:46] LABS: Lactic Acid 4.7 (0.4-2.0)
[2018-04-06 10:50] LABS: ACETAMINOPHEN < 10 ug/ml (10-30); ALBUMIN 4.4 g/dL (3.5-5.0); ALKALINE PHOSPHATASE 227 U/L (38-126); ANION GAP 17.6 MEQ/L (5-15); BLOOD UREA NITROGEN 10 mg/dL (9-20); CHLORIDE 88 mmol/L (98-107); Calcium 10.9 mg/dL (8.4-10.2); Carbon Dioxide 31 mmol/L (22-30); Creatinine 1 1.77 mg/dL (0.66-1.25); ETHYL ALCOHOL < 10 mg/dL (0-10); Glucose 104 mg/dL (74-106); Potassium 3.3 mmol/L (3.5-5.1); SALICYLATE < 1.0 mg/dL (2-20); SGOT/AST 221 U/L (17-59); SGPT/ALT 84 U/L (0-50); SODIUM 134 mmol/L (137-145); Total Protein 7.4 g/dL (6.3-8.2)
[2018-04-06 10:57] LABS: Slide Review 1 YES
[2018-04-06] MEDS ORDERED: Klor Con 10 MEQ PO ONE ×2 (10:58→11:05)
[2018-04-06 12:03] LABS: Amphetamine,Urine NEGATIVE (NEGATIVE); Barbiturate,Urine NEGATIVE (NEGATIVE); Benzodiazepine,Urine NEGATIVE (NEGATIVE); Cocaine,Urine NEGATIVE (NEGATIVE); Methadone,Urine NEGATIVE (NEGATIVE); Opiate,Urine NEGATIVE (NEGATIVE); PCP,Urine NEGATIVE (NEGATIVE); THC,Urine NEGATIVE (NEGATIVE)
--- NOTE | 2018-04-06 12:08 | XRAY ---
Indication: Elevated liver function testing, bilirubin, and WBC. Multiple contiguous axial images obtained through the abdomen and pelvis without contrast as ordered. Comparison: August 30, 2008. Lung bases essentially clear. Heart is not enlarged. Distal esophagus now demonstrates circumferential wall thickening, possible esophagitis. Stomach is distended with food/fluid. Noncontrasted stomach and bowel loops appear nonobstructed. Normal appendix. No free fluid/air. Mild diffuse scattered colonic fecal debris throughout. Minimal descending and proximal sigmoid colon diverticulosis without diverticulitis. Liver now demonstrates diffuse fatty attenuation. New 8-9 mm round left mid renal cortical hyperdensity. Remaining liver, gallbladder, pancreas, spleen, adrenal glands, kidneys, ureters, bladder, and aorta appear unremarkable for noncontrast exam. Osseous structures intact with mild degenerative changes throughout the spine. No ventral or inguinal hernias. Impression: 1. Mild fecal stasis without obstruction. Minimal colonic diverticulosis without diverticulitis. 2. New indeterminate 8-9 mm round left mid renal cortical hyperdensity. Ultrasound may yield further information and differentiate solid versus cystic mass. 3. New fatty liver. 4. New distal esophageal wall thickening. Rule out esophagitis. CT DI 16.36
[2018-04-06 12:24] LABS: Appearance SLIGHTLY CLOUDY (CLEAR); Bacteria RARE /HPF (NEGATIVE); Bilirubin NEGATIVE (NEGATIVE); Blood NEGATIVE Ery/ul (0-5); Glucose NEGATIVE (NEGATIVE); Ketones NEGATIVE (NEGATIVE); Leukocyte Esterase NEGATIVE (NEGATIVE); Mucus SLIGHT /HPF (NEGATIVE); Nitrite NEGATIVE (NEGATIVE); Protein,Urine Dip NEGATIVE (Negative); Specific Gravity 1.004 (1.005-1.025); Urobilinogen NEGATIVE mg/dL (0-1)
[2018-04-06 12:29] VITALS: O2SAT 98
[2018-04-06 13:02] VITALS: BP 141/83; PULSE 100
== END 2018-04-06 13:25 | disposition home or self-care (01) ==
LOC: ED 09:30
DX: F10.951 Alcohol use, unspecified with alcohol-induced psychotic disorder with hallucinations (principal); D69.6 Thrombocytopenia, unspecified; N39.0 Urinary tract infection, site not specified; R74.8 Abnormal levels of other serum enzymes; E87.6 Hypokalemia; Z79.899 Other long term (current) drug therapy
CPT/HCPCS: 36000; 36415; 74176; 80053; 80185; 80307; 81001; 82140; 83605; 83690; 85025; 93005; 93041; 96360; 99284; G0481; A9270-GY; G0480

== ENCOUNTER 2018-04-07 07:41 | Inpatient (IN) | payer BC ==
[2018-04-07] MEDS ORDERED: Sodium Chloride 0.9% 1000 ML 1,000 ML IV STA (08:07)
[2018-04-07] MEDS ORDERED: Pepcid 20 MG VIAL IV ONE ×2 (08:07→08:16)
[2018-04-07] MEDS ORDERED: Ativan 2 MG/1 ML VIAL IV ONE ×2 (08:09→09:57)
[2018-04-07] MEDS ORDERED: Ativan 2 MG/1 ML VIAL ONE ×2 (08:16→09:59)
[2018-04-07] MEDS ORDERED: Sodium Chloride 0.9% 1000 ML 1,000 ML ONE ×2 (08:16→09:40)
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
[2018-04-07 08:24] LABS: Lactic Acid 5.1 (0.4-2.0)
[2018-04-07 08:32] LABS: BASOPHIL % 0.2 % (0.0-0.4); Basophil (Absolute #) 0.01 (0-0.4); Eosinophil % 0.3 % (0.00-5.0); Eosinophil (Absolute #) 0.02 (0-0.5); Granulocytes % 81.8 % (36.0-66.0); Hematocrit 34.6 % (42-50); Hemoglobin 11.7 gm/dl (12.5-18.0); Lymphocyte (Absolute #) 0.43 (1.0-4.6); Lymphocytes % 7.4 % (24.0-44.0); Mean Cell Volume 104.8 fl (78-100); Mean Corpuscular Hemoglobin 35.4 pg (26-32); Mean Corpuscular Hgb Concent. 33.8 g/dl (32-36); Mean Platelet Volume 11.3 fl (6-9.5); Monocytes % 10.3 % (0.0-12.0); Platelet Count 46 K/mm3 (150-450); Red Cell Distribution Width 14.8 % (11.5-14.0); White Blood Count 5.8 K/mm3 (4.0-10.5)
[2018-04-07 08:38] LABS: Appearance CLEAR (CLEAR); Bilirubin NEGATIVE (NEGATIVE); Blood NEGATIVE Ery/ul (0-5); Glucose NEGATIVE (NEGATIVE); Ketones NEGATIVE (NEGATIVE); Leukocyte Esterase NEGATIVE (NEGATIVE); Mucus SLIGHT /HPF (NEGATIVE); Nitrite NEGATIVE (NEGATIVE); Protein,Urine Dip NEGATIVE (Negative); Specific Gravity 1.002 (1.005-1.025); Urobilinogen NEGATIVE mg/dL (0-1); WBC 0-2 /HPF (0-5)
[2018-04-07 08:48] LABS: INR 1.21 (0.8-3.0); PROTIME 14.1 SECONDS (8.83-12.87)
[2018-04-07 08:52] LABS: Amphetamine,Urine NEGATIVE (NEGATIVE); Barbiturate,Urine NEGATIVE (NEGATIVE); Benzodiazepine,Urine NEGATIVE (NEGATIVE); Cocaine,Urine NEGATIVE (NEGATIVE); Methadone,Urine NEGATIVE (NEGATIVE); Opiate,Urine NEGATIVE (NEGATIVE); PCP,Urine NEGATIVE (NEGATIVE); THC,Urine NEGATIVE (NEGATIVE)
[2018-04-07 08:54] LABS: ALBUMIN 4.1 g/dL (3.5-5.0); ALKALINE PHOSPHATASE 210 U/L (38-126); ANION GAP 14.4 MEQ/L (5-15); BLOOD UREA NITROGEN 8 mg/dL (9-20); CHLORIDE 95 mmol/L (98-107); Calcium 10.1 mg/dL (8.4-10.2); Carbon Dioxide 27 mmol/L (22-30); Glucose 158 mg/dL (74-106); LIPASE 78 U/L (23-300); Potassium 3.4 mmol/L (3.5-5.1); SGOT/AST 333 U/L (17-59); SGPT/ALT 88 U/L (0-50); SODIUM 133 mmol/L (137-145); Slide Review 1 YES; Total Protein 7.1 g/dL (6.3-8.2)
[2018-04-07 09:08] LABS: ETHYL ALCOHOL < 10 mg/dL (0-10)
[2018-04-07] MEDS ORDERED: Sodium Chloride 0.9% 1000 ML 1,000 ML IV SCH (10:15)
[2018-04-07] MEDS ORDERED: Zofran 4 MG/2 ML VIAL IV PRN (10:43)
[2018-04-07 11:48] LABS: ALBUMIN 3.5 g/dL (3.5-5.0); BILIRUBIN,TOTAL 1.9 mg/dL (0.2-1.3); Direct Bilirubin 1.3 mg/dL (0.0-0.4); Total Protein 6.1 g/dL (6.3-8.2)
[2018-04-07] MEDS: FOLATE 1 MG PO SCH (11:51)
[2018-04-07] MEDS: Ativan 2 MG/1 ML VIAL IV PRN ×6 (12:13→22:17)
[2018-04-07] MEDS: Sodium Chloride 0.9% W/ 20 mEq KCl/LITER 1,000 ML IV SCH ×2 (12:17→14:53)
[2018-04-07] MEDS: Zestril 10 MG PO SCH (14:51)
[2018-04-07] MEDS: Dilantin 100 MG PO SCH (14:51)
--- NOTE | 2018-04-07 16:01 | XRAY ---
Indication: Status post fall. Hallucinations. Multiple contiguous axial images obtained through the head without contrast. Comparison: June 13, 2017. Again right parietal scalp metallic shrapnel produces extreme beam artifact limiting these levels. No acute intracranial hemorrhage, abnormal extra-axial fluid collection, or mass effect. Fourth ventricle is midline without hydrocephalus. Bony calvarium intact. Mild mucosal thickening of the visualized right maxillary sinus. Remaining visualized paranasal sinuses and mastoid air cells are clear. Impression: Again right scalp metallic shrapnel artifact. No new or acute intracranial abnormalities. Incidental right maxillary sinus disease. CT DI 51.37
[2018-04-07] MEDS: THIAMINE 200 MG/2 ML IV SCH (17:00)
[2018-04-07] MEDS: THERAGRAN MULTIVITAMIN PO SCH (17:00)
[2018-04-07 19:44] LABS: Vitamin B12 515 pg/mL (239-931)
[2018-04-07 19:45] LABS: TROPONIN < 0.012 ng/mL (0.000-0.034)
[2018-04-07] MEDS: Phenergan 25 MG INJ IM PRN ×2 (21:10→21:31)
[2018-04-07] MEDS: Pepcid 20 MG VIAL IV SCH (21:35)
[2018-04-08] MEDS: Ativan 2 MG/1 ML VIAL IV PRN (00:56)
[2018-04-08] MEDS: Sodium Chloride 0.9% W/ 20 mEq KCl/LITER 1,000 ML IV SCH ×2 (00:56→08:58)
[2018-04-08 05:48] LABS: BASOPHIL % 0.6 % (0.0-0.4); Basophil (Absolute #) 0.03 (0-0.4); Eosinophil (Absolute #) 0.05 (0-0.5); Granulocytes % 68.5 % (36.0-66.0); Hematocrit 32.3 % (42-50); Hemoglobin 10.7 gm/dl (12.5-18.0); Lymphocyte (Absolute #) 0.91 (1.0-4.6); Lymphocytes % 18.5 % (24.0-44.0); Mean Corpuscular Hemoglobin 35.4 pg (26-32); Mean Corpuscular Hgb Concent. 33.1 g/dl (32-36); Mean Platelet Volume 10.5 fl (6-9.5); Monocyte (Absolute #) 0.56 (0.0-1.3); Monocytes % 11.4 % (0.0-12.0); Platelet Count 59 K/mm3 (150-450); Red Blood Count 3.02 M/mm3 (4.1-5.6); Red Cell Distribution Width 15.2 % (11.5-14.0); White Blood Count 4.9 K/mm3 (4.0-10.5)
[2018-04-08 06:38] LABS: ANION GAP 12.1 MEQ/L (5-15); BLOOD UREA NITROGEN 6 mg/dL (9-20); CHLORIDE 104 mmol/L (98-107); Calcium 9.5 mg/dL (8.4-10.2); Carbon Dioxide 27 mmol/L (22-30); Creatinine 1 0.57 mg/dL (0.66-1.25); Glucose 84 mg/dL (74-106); SODIUM 140 mmol/L (137-145)
--- NOTE | 2018-04-08 08:15 | HP ---
CHIEF COMPLAINT: Alcohol withdrawal syndrome, hallucinations. HISTORY OF PRESENT ILLNESS: The patient is a 47 year-old white male patient who was brought into the emergency room after knocking on peoples doors in [place] telling them that the [facility] [employer] was after him. The patient apparently had been seen in the emergency room the previous day with similar problems but apparently his mother was going to take him home and they sent him home under her care but the patient returned with similar problems and was felt the need to be admitted to the hospital. PAST MEDICAL HISTORY: Significant for alcoholism. He apparently has a seizure disorder and hypertension for which he takes phenytoin and lisinopril which he apparently has not taken in the last several days. ALLERGIES: NKDA. PHYSICAL EXAMINATION: The patient's O2 saturation is 97% on room air on admission. His vital signs were temperature 98.2F, pulse 119, respiratory rate 16, blood pressure 174/125. HEENT: Normocephalic, atraumatic. Pupils equal round reactive to light. Oropharynx is dry. NECK: Supple without lymphadenopathy, thyromegaly or JVD. CHEST: Clear to auscultation. HEART: Regular rate and rhythm without murmurs, rubs or gallops. ABDOMEN: Soft. No palpable masses. EXTREMITIES: Without cyanosis, clubbing or edema. NEUROLOGIC: He is mumbling and disoriented although he is attempting to answer questions. LAB DATA AND TESTS: Nonfasting sugar at 158. BUN 8, creatinine 0.7, sodium slightly low at 133, potassium 3.4, total bilirubin 2.10, AST 333, ALT 88. ETOH less than 10. Lactic acid 5.1. International normalized ratio 1.21. UA was normal with specific gravity 1.002. Troponin less than 0.012. Urine drug screen was negative. White blood cell count 5,800, hemoglobin 11.7, PLT count low at 46,000 but apparently through evaluation of his chart previous this appears to be a chronic condition. ASSESSMENT: The patient has been brought into the hospital for close monitoring in the ICU, placed on DT protocol with IV Ativan to control his disorientation and agitation. We will obtain a [facility] consult when he is of more clear of mind. He has received multivitamins and thiamine IV as well as IV fluid rehydration. We will start him back on his home medications as stated above.
[2018-04-08] MEDS: THIAMINE 200 MG/2 ML IV SCH (08:57)
[2018-04-08] MEDS: Klor Con 10 MEQ PO SCH ×2 (08:58→14:59)
[2018-04-08] MEDS: FOLATE 1 MG PO SCH (08:58)
[2018-04-08] MEDS: THERAGRAN MULTIVITAMIN PO SCH (08:58)
[2018-04-08] MEDS: Dilantin 100 MG PO SCH (08:58)
[2018-04-08] MEDS: Pepcid 20 MG VIAL IV SCH (08:58)
[2018-04-08] MEDS: Zestril 10 MG PO SCH (08:58)
[2018-04-08 11:25] LABS: ALBUMIN 3.6 g/dL (3.5-5.0); BILIRUBIN,TOTAL 1.6 mg/dL (0.2-1.3); Direct Bilirubin 1.1 mg/dL (0.0-0.4); Total Protein 6.2 g/dL (6.3-8.2)
[2018-04-08 16:15] VITALS: BP 115/78; PULSE 94
[2018-04-09 07:20] VITALS: O2SAT 97
== END 2018-04-08 19:55 | DRG 897 ==
LOC: ED 07:41 → ICU 10:15 → OBSVTOIN 10:15
PROVIDERS: ADMIT Family Medicine; ATTEND Family Medicine
DX: F10.251 Alcohol dependence with alcohol-induced psychotic disorder with hallucinations (principal); G40.909 Epilepsy, unspecified, not intractable, without status epilepticus; I10 Essential (primary) hypertension
CPT/HCPCS: 36000; 36415; 70450; 80048; 80053; 80076; 80307; 81001; 82607; 83605; 83690; 84134; 84425; 84484; 85025; 85610; 93005; 96360; 96361; 96374; 96375; 96376; 99285; J2060; J2550; A9270-GY; G0480

== ENCOUNTER 2018-11-03 22:46 | Observation (INO) | payer BC, MEDICAID ==
[2018-11-03] MEDS ORDERED: DUONEB 0.5-3 MG/3 ml Neb IH ONE ×2 (23:02→23:11)
[2018-11-03] MEDS ORDERED: DECADRON 10MG INJ. IV ONE (23:05)
--- NOTE | 2018-11-03 23:07 | ERPHSYRPT ---
- History of Present Illness Time Seen by Provider: 11/03/18 23:00 Source: patient, family (Spouse) Exam Limitations: no limitations Physician History: Short of air tonight and chest pain - about one hour ago Allergies/Adverse Reactions: No Known Drug Allergies Allergy (Verified 04/07/18 08:06) Home Medications: Phenytoin Sod Extended 100 mg* [Dilantin 100 MG] 200 mg PO BID 01/19/17 [ History] Gabapentin 200 mg PO BID 11/03/18 [History] Ibuprofen 200 mg [Motrin 200 mg] 200 mg PO QID PRN PRN 11/04/18 [History] Hx Tetanus, Diphtheria Vaccination/Date Given: No Hx Influenza Vaccination/Date Given: No Hx Pneumococcal Vaccination/Date Given: No - Review of Systems Constitutional: Malaise Eyes: Eye Redness (Right eye) Respiratory: Cough, Dyspnea Cardiac: Chest Pain (heavines with breathing efforts) Abdominal/Gastrointestinal: No Symptoms - Past Medical History Pertinent Past Medical History: Yes Neurological History: Seizures ENT History: No Pertinent History Cardiac History: Hypertension, Myocardial Infarction (AL) Respiratory History: No Pertinent History Endocrine Medical History: No Pertinent History Musculoskeletal History: Arthritis GI Medical History: No Pertinent History History: No Pertinent History Psycho-Social History: No Pertinent History Male Reproductive Disorders: No Pertinent History Other Medical History: 2 LOWER DISCS ARE OUT, - Past Surgical History Past Surgical History: Yes Neuro Surgical History: No Pertinent History Cardiac: Cardiac Catheterization Respiratory: No Pertinent History Gastrointestinal: No Pertinent History Genitourinary: No Pertinent History Musculoskeletal: No Pertinent History Male Surgical History: No Pertinent History - Social History Smoking Status: Current every day smoker How long have you smoked: 10years Exposure to second hand smoke: Yes Drug Use: none Patient Lives Alone: No - Nursing Vital Signs Nursing Vital Signs: Initial Vital Signs Temperature 98.9 F 11/03/18 22:48 Pulse Rate 111 H 11/03/18 22:48 Respiratory Rate 18 11/03/18 22:48 Blood Pressure 120/87 11/03/18 22:48 O2 Sat by Pulse Oximetry 95 11/03/18 22:48 Pain Scale Pain Intensity 4 - Physical Exam General Appearance: moderate distress, alert, anxiety Eye Exam: PERRL/EOMI, eyes nml inspection (Except R eye conjunctival erythema and injection) Ears, Nose, Throat Exam: hearing grossly normal, normal ENT inspection, normal pharynx Neck Exam: normal inspection, non-tender, supple, No carotid bruit Respiratory Exam: wheezing Cardiovascular/Chest Exam: normal heart sounds, regular rate/rhythm Abdominal/Gastrointestinal Exam: soft, normal bowel sounds, No tenderness Extremity Exam: non-tender, normal range of motion, no calf tenderness, no pedal edema Neurologic Exam: alert, oriented x 3, cooperative Skin Exam: normal color, warm, dry SpO2 Interpretation: normal O2 Delivery: Room Air - Course Nursing assessment & vital signs reviewed: Yes EKG Interpreted by Me: RATE (118), Sinus Tach, ST Elev (slight V3 no other ), Other (QRS-T wave changes similar to 04/07/18) - CT Exams Chest CT Interpretation: Negative (Per rad report) Ordered Tests: Active Orders 24 hr Category Date Time Status Up With Assistance ROUTINE Activity 11/04/18 02:18 Active Code Status Order ROUTINE Care 11/04/18 02:18 Active IV Care Q6H Care 11/04/18 02:[address] in Observation ROUTINE Care 11/04/18 02:18 Active Regular Diet Diet 11/04/18 Breakfast Active CHEST 1 VIEW (PORTABLE) Stat Exams 11/03/18 23:01 Taken CHEST WITH CONTRAST [CT] Stat Exams 11/03/18 23:39 Taken CBC W DIFF AM.LAB Lab 11/04/18 05:07 Completed CBC W DIFF Stat Lab 11/03/18 23:25 Completed CMP AM.LAB Lab 11/04/18 05:07 Completed CMP Stat Lab 11/03/18 23:25 Completed D-DIMER QUANTITATION Stat Lab 11/03/18 23:25 Completed ETHYL ALCOHOL Stat Lab 11/03/18 23:25 Completed MAGNESIUM Routine Lab 11/04/18 05:07 Completed MAGNESIUM Stat Lab 11/03/18 23:25 Completed NT PRO BNP Stat Lab 11/03/18 23:25 Completed TROPONIN Q3H Lab 11/03/18 23:25 Completed Oxygen Nasal Cannula 2 lpm RT 11/04/18 02:18 Active Respiratory Therapy Assessment DAILY RT 11/03/18 23:17 Completed Medication Summary Generic Name Dose Route Start Last Admin Trade Name Freq PRN Reason Stop Dose Admin Sodium Chloride 1,000 mls @ 100 mls/hr 11/03/18 23:15 11/04/18 03:40 Sodium Chloride 0.9% 1000 Ml IV 12/03/18 23:14 100 mls/hr .Q10H DESHAWN Administration Potassium Chloride 20 meq in 100 mls @ 50 mls/hr 11/03/18 23:45 11/04/18 03: 40 Potassium Chloride 20 Meq In Water 100ml IV 11/04/18 03:44 50 mls/hr Q2H DESHAWN Administration Discontinued Medications Generic Name Dose Route Start Last Admin Trade Name Dustin PRN Reason Stop Dose Admin Albuterol/Ipratropium 3 ml 11/03/18 23:02 11/03/18 23:14 Duoneb 0.5-3 Mg/3 Ml Neb IH 11/03/18 23:03 3 ml STAT ONE Administration Albuterol/Ipratropium Confirm 11/03/18 23:11 Duoneb 0.5-3 Mg/3 Ml Neb Administered 11/03/18 23:12 Dose 3 ml IH .STK-MED ONE Dexamethasone Sodium Phosphate 8 mg 11/03/18 23:05 11/03/18 23:14 Decadron 10mg Inj. IV 11/03/18 23:06 8 mg STAT ONE Administration Dexamethasone Sodium Phosphate Confirm 11/03/18 23:13 Decadron 10mg Inj. Administered 11/03/18 23:14 Dose 10 mg .ROUTE .STK-MED ONE Magnesium Sulfate/Dextrose 100 mls @ 200 mls/hr 11/04/18 02:00 11/04/18 02:11 Magnesium 1 Gm / 100 Ml D5w IV 11/04/18 02:29 200 mls/hr STAT ONE Administration Magnesium Sulfate/Dextrose Confirm 11/04/18 02:07 Magnesium 1 Gm / 100 Ml D5w Administered 11/04/18 02:08 Dose 100 mls @ ud IV .STK-MED ONE Morphine Sulfate 1 mg 11/04/18 01:59 11/04/18 02:11 Morphine Sulfate 2 Mg Inj IV 11/04/18 02:00 1 mg STAT ONE Administration Morphine Sulfate Confirm 11/04/18 02:07 Morphine Sulfate 4 Mg Inj Administered 11/04/18 02:08 Dose 4 mg .ROUTE .STK-MED ONE Ondansetron HCl 4 mg 11/04/18 02:00 11/04/18 02:11 Zofran 4 Mg/2 Ml Vial IV 11/04/18 02:01 4 mg STAT ONE Administration Ondansetron HCl Confirm 11/04/18 02:07 Zofran 4 Mg/2 Ml Vial Administered 11/04/18 02:08 Dose 4 mg .ROUTE .STK-MED ONE Lab/Rad Data: Laboratory Result Diagrams 11/03/18 23:25 11/03/18 23:25 Laboratory Results 11/03/18 11/03/18 11/03/18 Range/Units 23:25 23:25 23:25 WBC (4.0-10.5) K/mm3 RBC (4.1-5.6) M/mm3 Hgb (12.5-18.0) gm/dl Hct (42-50) % MCV (78-100) fl MCH (26-32) pg MCHC (32-36) g/dl RDW (11.5-14.0) % Plt Count (150-450) K/mm3 MPV (6-9.5) fl Gran % (36.0-66.0) % Eos # (Auto) (0-0.5) Absolute Lymphs (auto) (1.0-4.6) Absolute Monos (auto) (0.0-1.3) Lymphocytes % (24.0-44.0) % Monocytes % (0.0-12.0) % Eosinophils % (0.00-5.0) % Basophils % (0.0-0.4) % Absolute Granulocytes (1.4-6.9) Basophils # (0-0.4) D-Dimer 1904 H* (215-500) ng/mL Sodium 133 L (137-145) mmol/L Potassium 2.5 L* (3.5-5.1) mmol/L Chloride 88 L (98-107) mmol/L Carbon Dioxide 25 (22-30) mmol/L Anion Gap 22.6 H (5-15) MEQ/L BUN 11 (9-20) mg/dL Creatinine 0.62 L (0.66-1.25) mg/dL Estimated GFR > 60.0 ML/MIN Glucose 189 H (74-106) mg/dL Calcium 8.6 (8.4-10.2) mg/dL Magnesium 1.3 L (1.6-2.3) mg/dL Total Bilirubin 7.70 H (0.2-1.3) mg/dL AST 298 H (17-59) U/L ALT 71 H (0-50) U/L Alkaline Phosphatase 287 H (38-126) U/L Troponin I < 0.012 (0.000-0.034) ng/mL NT-Pro-B Natriuret Pep 183 (0-450) pg/mL Serum Total Protein 7.2 (6.3-8.2) g/dL Albumin 3.7 (3.5-5.0) g/dL Ethyl Alcohol 290 H (0-10) mg/dL 11/03/18 Range/Units 23:25 WBC 12.1 H (4.0-10.5) K/mm3 RBC 3.58 L (4.1-5.6) M/mm3 Hgb 13.1 (12.5-18.0) gm/dl Hct 36.6 L (42-50) % MCV 102.2 H (78-100) fl MCH 36.5 H (26-32) pg MCHC 35.8 (32-36) g/dl RDW 13.8 (11.5-14.0) % Plt Count 48 L (150-450) K/mm3 MPV 11.5 H (6-9.5) fl Gran % 82.3 H (36.0-66.0) % Eos # (Auto) 0.01 (0-0.5) Absolute Lymphs (auto) 1.16 (1.0-4.6) Absolute Monos (auto) 0.96 (0.0-1.3) Lymphocytes % 9.6 L (24.0-44.0) % Monocytes % 7.9 (0.0-12.0) % Eosinophils % 0.1 (0.00-5.0) % Basophils % 0.1 (0.0-0.4) % Absolute Granulocytes 9.94 H (1.4-6.9) Basophils # 0.01 (0-0.4) D-Dimer (215-500) ng/mL Sodium (137-145) mmol/L Potassium (3.5-5.1) mmol/L Chloride (98-107) mmol/L Carbon Dioxide (22-30) mmol/L Anion Gap (5-15) MEQ/L BUN (9-20) mg/dL Creatinine (0.66-1.25) mg/dL Estimated GFR ML/MIN Glucose (74-106) mg/dL Calcium (8.4-10.2) mg/dL Magnesium (1.6-2.3) mg/dL Total Bilirubin (0.2-1.3) mg/dL AST (17-59) U/L ALT (0-50) U/L Alkaline Phosphatase (38-126) U/L Troponin I (0.000-0.034) ng/mL NT-Pro-B Natriuret Pep (0-450) pg/mL Serum Total Protein (6.3-8.2) g/dL Albumin (3.5-5.0) g/dL Ethyl Alcohol (0-10) mg/dL - Progress Progress: improved Air Movement: good Progress Note: 11/04/18 02:12 IV NS with K and Mg add on hung; lungs much improved with one Duoneb. Discussed admission (OBS) with patient - willing to be admitted. Discussed with : Mello Will see patient in: hospital (observation) - Departure Departure Disposition: Observation Clinical Impression: Shortness of breath, Hypokalemia Condition: Stable Critical Care Time: Yes Critical Care Time(excluding separately billable procedures): Critical 30-74 mins
[2018-11-03] MEDS ORDERED: DECADRON 10MG INJ. ONE (23:13)
[2018-11-03] MEDS: Sodium Chloride 0.9% 1000 ML 1,000 ML IV SCH (23:15)
[2018-11-03 23:30] LABS: BASOPHIL % 0.1 % (0.0-0.4); Basophil (Absolute #) 0.01 (0-0.4); Eosinophil % 0.1 % (0.00-5.0); Eosinophil (Absolute #) 0.01 (0-0.5); Granulocyte Absolute (ANC) 9.94 (1.4-6.9); Granulocytes % 82.3 % (36.0-66.0); Hematocrit 36.6 % (42-50); Hemoglobin 13.1 gm/dl (12.5-18.0); Lymphocyte (Absolute #) 1.16 (1.0-4.6); Lymphocytes % 9.6 % (24.0-44.0); Mean Cell Volume 102.2 fl (78-100); Mean Corpuscular Hgb Concent. 35.8 g/dl (32-36); Mean Platelet Volume 11.5 fl (6-9.5); Monocyte (Absolute #) 0.96 (0.0-1.3); Monocytes % 7.9 % (0.0-12.0); Platelet Count 48 K/mm3 (150-450); Red Blood Count 3.58 M/mm3 (4.1-5.6); Red Cell Distribution Width 13.8 % (11.5-14.0); White Blood Count 12.1 K/mm3 (4.0-10.5)
[2018-11-03 23:33] LABS: Mean Corpuscular Hemoglobin 36.5 pg (26-32)
[2018-11-03 23:49] LABS: ALBUMIN 3.7 g/dL (3.5-5.0); ALKALINE PHOSPHATASE 287 U/L (38-126); ANION GAP 22.6 MEQ/L (5-15); BLOOD UREA NITROGEN 11 mg/dL (9-20); CHLORIDE 88 mmol/L (98-107); Calcium 8.6 mg/dL (8.4-10.2); Carbon Dioxide 25 mmol/L (22-30); Creatinine 1 0.62 mg/dL (0.66-1.25); ETHYL ALCOHOL 290 mg/dL (0-10); Glucose 189 mg/dL (74-106); MAGNESIUM 1.3 mg/dL (1.6-2.3); NT PRO BNP 183 pg/mL (0-450); SGOT/AST 298 U/L (17-59); SGPT/ALT 71 U/L (0-50); SODIUM 133 mmol/L (137-145); Total Protein 7.2 g/dL (6.3-8.2)
[2018-11-03 23:50] LABS: Potassium 2.5 mmol/L (3.5-5.1)
[2018-11-04] MEDS: POTASSIUM CHLORIDE 20 mEq IN WATER 100ML 20 MEQ/100 ML BAG IV SCH ×2 (00:36→03:40)
[2018-11-04] MEDS ORDERED: MORPHINE SULFATE 2 MG INJ IV ONE (01:59)
[2018-11-04] MEDS ORDERED: Magnesium 1 Gm / 100 Ml D5W*** 100 ML IV ONE ×2 (02:00→02:07)
[2018-11-04] MEDS ORDERED: Zofran 4 MG/2 ML VIAL IV ONE (02:00)
[2018-11-04] MEDS ORDERED: Zofran 4 MG/2 ML VIAL ONE (02:07)
[2018-11-04] MEDS ORDERED: MORPHINE SULFATE 4 MG INJ ONE (02:07)
[2018-11-04] MEDS: Sodium Chloride 0.9% 1000 ML 1,000 ML IV SCH (03:40)
[2018-11-04 05:18] LABS: Basophil (Absolute #) 0 (0-0.4); Eosinophil (Absolute #) 0 (0-0.5); Granulocyte Absolute (ANC) 6.94 (1.4-6.9); Granulocytes % 90.3 % (36.0-66.0); Hematocrit 30.5 % (42-50); Hemoglobin 11.4 gm/dl (12.5-18.0); Lymphocyte (Absolute #) 0.32 (1.0-4.6); Lymphocytes % 4.2 % (24.0-44.0); Mean Cell Volume 101.7 fl (78-100); Mean Corpuscular Hgb Concent. 37.4 g/dl (32-36); Mean Platelet Volume 10.6 fl (6-9.5); Monocyte (Absolute #) 0.42 (0.0-1.3); Monocytes % 5.5 % (0.0-12.0); Red Cell Distribution Width 13.6 % (11.5-14.0); White Blood Count 7.7 K/mm3 (4.0-10.5)
[2018-11-04 05:27] LABS: Platelet Count 30 K/mm3 (150-450)
[2018-11-04 05:44] LABS: ALBUMIN 3.2 g/dL (3.5-5.0); ALKALINE PHOSPHATASE 250 U/L (38-126); ANION GAP 16.4 MEQ/L (5-15); BLOOD UREA NITROGEN 7 mg/dL (9-20); CHLORIDE 90 mmol/L (98-107); Calcium 7.7 mg/dL (8.4-10.2); Carbon Dioxide 27 mmol/L (22-30); Creatinine 1 0.39 mg/dL (0.66-1.25); Glucose 124 mg/dL (74-106); MAGNESIUM 1.3 mg/dL (1.6-2.3); Potassium 3.3 mmol/L (3.5-5.1); SGOT/AST 246 U/L (17-59); SGPT/ALT 61 U/L (0-50); SODIUM 130 mmol/L (137-145); Total Protein 6.3 g/dL (6.3-8.2)
[2018-11-04 08:01] LABS: Slide Review 1 YES
[2018-11-04] MEDS ORDERED: Ativan 2 MG/1 ML VIAL IV PRN (08:33)
--- NOTE | 2018-11-04 09:03 | HP ---
CHIEF COMPLAINT: Left-sided chest pain after fall from a seizure. HISTORY OF PRESENT ILLNESS: The patient is a 48 year-old, severely alcoholic fellow who reports he has been having seizures over the past few weeks. He is on Dilantin for seizure disorder. The patient reports he sees Dr. Jhoan Foy but has not seen him over the last several months. The patient reports that he does drink alcohol and about a pint a day. The patient has identified with multiple abnormalities on his labs consistent with cirrhosis of the liver. The patient currently is awake, alert, oriented x3. HOME MEDICATIONS: Dilantin 300 mg a day, gabapentin 200 mg b.i.d. ALLERGIES: NKDA. PHYSICAL EXAMINATION: Revealed a disheveled white male patient currently in no obvious distress. His vital signs on admission show temperature to be 98.9F, pulse 111, respiratory rate 18, blood pressure 120/87. O2 saturations 95%. HEENT: No obvious trauma although he does have some scleral icterus to the left eye. The right eye has some blood in the sclera from what appears to be likely recent trauma from seizure activity most likely. Oropharynx is pink and moist. NECK: Supple. CHEST: Clear to auscultation with good air movement bilaterally. HEART: Regular rate and rhythm. ABDOMEN: Soft with a mildly enlarged liver. There were no other palpable masses felt. EXTREMITIES: Reveal multiple bruises and abrasions. No cyanosis or clubbing is present. NEUROLOGIC: No focal deficits were noted on evaluation. LAB DATA AND TESTS: Revealed an elevated D-dimer for which he received CT scan which did rule out pulmonary embolism. His D-dimer was 1,904. He had troponin less than 0.012. His white blood cell count was 12,100, hemoglobin 13.1, PLT count however is only 48,000. His glucose is 189, BUN 11, creatinine 0.62. Sodium slightly low at 133, potassium 2.5. Magnesium is also somewhat low at 1.3. His total bilirubin is 7.7. AST 298, ALT 71, alkaline phosphatase 287. ETOH was 290. ASSESSMENT: The patient was admitted to the hospital due to his chest pain. He had serial troponins drawn. He was also monitored for seizures which he has had none since his admission. We will draw a Dilantin level as one was not done in the emergency room initially and load him up to get him in the therapeutic range once we find out what his level is. We will run a gallbladder ultrasound to be sure he does not have any stones or dilated ducts due to his significant elevation in his bilirubin levels as well. If he is able to eat and ambulate on his own we will discharge him home with instructions to follow up with his regular doctor which is Dr. Foy as soon as he can and will also determine whether he has a neurologist involved in his care as well. He was admonished to stop drinking but has no interest in that presently.
[2018-11-04 09:07] LABS: INR 1.46 (0.8-3.0); PROTIME 16.6 SECONDS (8.83-12.87)
--- NOTE | 2018-11-04 09:16 | XRAY ---
Indication: Short of breath. Comparison: January 19, 2017. Portable chest slightly underinflated and clear. Heart and mediastinal structures within normal limits. Bony thorax intact. Impression: Nonacute underinflated chest.
--- NOTE | 2018-11-04 09:16 | XRAY ---
Indication: Short of breath. Elevated d-dimer. Multiple contiguous axial images obtained through the chest using 80 cc Isovue 370 contrast and PE protocol. Comparison: None. There is satisfactory opacification of the pulmonary arteries to include the lobar and segmental branches. No filling defect or pulmonary embolus. Heart is not enlarged. Aorta is normal in course and caliber. No pathologic mediastinal/hilar lymphadenopathy. Lungs demonstrates mild bilateral dependent atelectasis. No suspicious pulmonary mass, infiltrate, or effusion. Bony thorax intact with old sternum fracture and mild dextroscoliosis centered at T7. Limited upper abdomen demonstrates diffuse fatty liver. Impression: Negative pulmonary embolus. No acute cardiopulmonary abnormalities. Incidental chronic bony findings and fatty liver. Comment: [facility] who does not report incidental bony findings and fatty liver CT DI 13.33
--- NOTE | 2018-11-04 11:17 | XRAY ---
Indication: Right upper quadrant pain. Two-dimensional gallbladder sonogram performed. Comparison: None Gallbladder normally distended with minimal sludge in the dependent portion. No gallstones. Gallbladder wall is thickened measuring 3.3 mm but no pericholecystic fluid. Common bile duct measures 2.1 mm. No intrahepatic biliary distention. Liver is enlarged measuring 21.2 cm in length and appears fatty in echogenic liver. No focal solid/cystic hepatic mass or ascites. Remaining visualized pancreas and right kidney sonographically unremarkable. Right kidney measures 11.1 cm in length. Impression: 1. Gallbladder sludge with gallbladder wall thickening. Rule out chronic cholecystitis. 2. Fatty hepatomegaly.
[2018-11-04 17:44] VITALS: BP 136/80; PULSE 104; O2SAT 99
[2018-11-05 13:53] LABS: HEPATITIS A IGM Non Reactive (Non Reactive); HEPATITIS B VIRUS CORE TOT AB Non Reactive (Non Reactive); HEPATITIS C VIRUS ANTIBODY Non Reactive (Non Reactive); Hepatitis B Surface Ab.Quant. <3.50 mIU/mL (0.00-8.49); Hepatitis B Surface Antigen Non Reactive (Non Reactive)
== END 2018-11-04 16:30 | disposition home or self-care (01) ==
LOC: ED 22:46 → MED SURG 11-04 02:55
PROVIDERS: ADMIT Family Medicine; ATTEND Family Medicine
DX: R07.9 Chest pain, unspecified (principal); R56.9 Unspecified convulsions; R79.1 Abnormal coagulation profile; E87.6 Hypokalemia; R16.0 Hepatomegaly, not elsewhere classified; D69.6 Thrombocytopenia, unspecified; R79.89 Other specified abnormal findings of blood chemistry; F10.20 Alcohol dependence, uncomplicated; W19.XXXA Unspecified fall, initial encounter
CPT/HCPCS: 36415; 71045; 71260; 76705; 80053; 80074; 80185; 80307; 83735; 83880; 84132; 84484; 85025; 85379; 85610; 93268; 94640; 96360; 96361; 96365; 96367; 96374; 96375; 99285; 99291; J1100; J2270; J2405; J3475; J3480; A9270-GY; G0378; G0480